=== PATIENT | male | born 1960 | race Caucasian/White ===

== ENCOUNTER 2017-01-04 06:03 | Emergency (ER) | payer MEDICAID, OTHER ==
[~2017-01-04] VITALS: Ht 182.9 cm; Wt 77.0 kg
[~2017-01-04 06:03] MED LIST: GABA800T PO; LISI10TA3 PO; METR-1 PO
[2017-01-04 06:05] VITALS: BP 147/88; PULSE 79; RESP 16; TEMP 98; O2SAT 99
[2017-01-04] MEDS ORDERED: SODIUM CHLOR 0.9% 1000 ML INJ 1,000 ML IV SCH (06:53)
[2017-01-04] MEDS ORDERED: SODIUM CHLORIDE 0.9% FLUSH 5 ML FLUSH IVF PRN (07:00)
[2017-01-04] MEDS ORDERED: ONDANSETRON HCL 4 MG/2 ML VIAL IVP ONE (07:00)
[2017-01-04] MEDS ORDERED: MORPHINE SULFATE 4 MG/ML INJ IV PUSH ONE (07:00)
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
[2017-01-04 07:36] LABS: AUTOMATED NEUTROPHIL # 2.6 TH/MM3 (1.8-7.7); BASOPHIL % 0.5 % (0.0-2.0); EOSINOPHIL # 0.1 TH/MM3 (0-0.4); EOSINOPHIL % 2.1 % (0.0-4.0); HEMATOCRIT 44.5 % (39.0-51.0); LYMPH % 33.8 % (9.0-44.0); LYMPHOCYTE # 1.7 TH/MM3 (1.0-4.8); MEAN CORPUSCULAR HEMOGLOBIN 34.8 PG (27.0-34.0); MEAN CORPUSCULAR HGB CONC 35.5 % (32.0-36.0); MONO % 13.2 % (0.0-8.0); NEUT % 50.4 % (16.0-70.0); PLATELET COUNT 42 TH/MM3 (150-450); RED BLOOD COUNT 4.54 MIL/MM3 (4.50-5.90); RED CELL DISTRIBUTION WIDTH 14.3 % (11.6-17.2); WHITE BLOOD COUNT 5.1 TH/MM3 (4.0-11.0)
[2017-01-04 07:44] LABS: HEMO FLAGS AUTO DIFF
[2017-01-04 07:46] LABS: APTT (PATIENT) 29.8 SEC (24.3-30.1); INTERNATIONAL NORMALIZED RATIO 1.2 RATIO; PROTHROMBIN TIME - PATIENT 13.6 SEC (9.8-11.6)
[2017-01-04 07:52] LABS: BLOOD, URINE NEG (NEG); GLUCOSE,URINE NEG (NEG); KETONE, URINE NEG (NEG); MUCUS URINE FEW /lpf (OCC); NITRITE,URINE NEG (NEG)
[2017-01-04 07:53] LABS: CALCIUM OXALATE CRYSTALS,URINE FEW /hpf; URINE COLOR AMBER (YELLW/STRAW)
[2017-01-04 07:54] LABS: COMMENT (UR) CULT NOT INDICATED; CULTURE IF INDICATED CULT NOT INDICATED
[2017-01-04 08:00] LABS: ALKALINE PHOSPHATASE 193 U/L (45-117); ALT (GPT) 114 U/L (12-78); ANION GAP 7 MEQ/L (5-15); AST (GOT) 166 U/L (15-37); BICARBONATE 27.3 MEQ/L (21.0-32.0); BLOOD UREA NITROGEN 8 MG/DL (7-18); CHLORIDE 102 MEQ/L (98-107); GLOMERULAR FILTRATION RATE 64 ML/MIN (>89); SODIUM (NA) 136 MEQ/L (136-145); TOTAL BILIRUBIN ADULT 2.4 MG/DL (0.2-1.0)
--- NOTE | 2017-01-04 08:49 | PD ---
Data Data Last Documented VS Vital Signs Date Time Temp Pulse Resp B/P Pulse Ox O2 Delivery O2 Flow Rate FiO2 01/04/17 07:55 20 01/04/17 06:05 98.0 79 147/88 99 Room Air Orders Complete Blood Count With Diff (01/04/17 06:53) Comprehensive Metabolic Panel (01/04/17 06:53) Lipase (01/04/17 06:53) Lactic Acid (01/04/17 06:53) Prothrombin Time / Inr (Pt) (01/04/17 06:53) Act Partial Throm Time (Ptt) (01/04/17 06:53) Urinalysis - C+S If Indicated (01/04/17 06:53) Iv Access Insert/Monitor (01/04/17 06:53) Ecg Monitoring (01/04/17 06:53) Oximetry (01/04/17 06:53) Morphine Inj (Morphine Inj) (01/04/17 07:00) Ondansetron Inj (Zofran Inj) (01/04/17 07:00) Sodium Chlor 0.9% 1000 Ml Inj (Ns 1000 M (01/04/17 06:53) Sodium Chloride 0.9% Flush (Ns Flush) (01/04/17 07:00) C-Reactive Protein (Crp) (01/04/17 06:53) Stool Wbc (Leukocytes) (01/04/17 07:10) Enteric Path (Stool) (01/04/17 07:10) C Diff Toxin Pcr (01/04/17 07:10) Ct Abd/Pel W Iv Contrast(Rout) (01/04/17 07:11) Iohexol 350 Inj (Omnipaque 350 Inj) (01/04/17 09:04) Labs Laboratory Tests Test 01/04/17 07:25 White Blood Count 5.1 TH/MM3 Red Blood Count 4.54 MIL/MM3 Hemoglobin 15.8 GM/DL Hematocrit 44.5 % Mean Corpuscular Volume 98.0 FL Mean Corpuscular Hemoglobin 34.8 PG Mean Corpuscular Hemoglobin 35.5 % Concent Red Cell Distribution Width 14.3 % Platelet Count 42 TH/MM3 Mean Platelet Volume 9.0 FL Neutrophils (%) (Auto) 50.4 % Lymphocytes (%) (Auto) 33.8 % Monocytes (%) (Auto) 13.2 % Eosinophils (%) (Auto) 2.1 % Basophils (%) (Auto) 0.5 % Neutrophils # (Auto) 2.6 TH/MM3 Lymphocytes # (Auto) 1.7 TH/MM3 Monocytes # (Auto) 0.7 TH/MM3 Eosinophils # (Auto) 0.1 TH/MM3 Basophils # (Auto) 0.0 TH/MM3 CBC Comment AUTO DIFF Differential Comment AUTO DIFF CONFIRMED Prothrombin Time 13.6 SEC Prothromb Time International 1.2 RATIO Ratio Activated Partial 29.8 SEC Thromboplast Time Urine Color DILIP Urine Turbidity CLEAR Urine pH 6.0 Urine Specific [place] 1.024 Urine Protein TRACE mg/dL Urine Glucose (UA) NEG mg/dL Urine Ketones NEG mg/dL Urine Occult Blood NEG Urine Nitrite NEG Urine Bilirubin SMALL Urine Urobilinogen 4.0 MG/DL Urine Leukocyte Esterase NEG Urine RBC LESS THAN 1 /hpf Urine WBC LESS THAN 1 /hpf Urine Calcium Oxalate Crystals FEW /hpf Urine Mucus FEW /lpf Microscopic Urinalysis Comment CULT NOT INDICATED Sodium Level 136 MEQ/L Potassium Level 4.0 MEQ/L Chloride Level 102 MEQ/L Carbon Dioxide Level 27.3 MEQ/L Anion Gap 7 MEQ/L Blood Urea Nitrogen 8 MG/DL Creatinine 1.18 MG/DL Estimat Glomerular Filtration 64 ML/MIN Rate Random Glucose 100 MG/DL Lactic Acid Level 1.1 mmol/L Calcium Level 8.8 MG/DL Total Bilirubin 2.4 MG/DL Aspartate Amino Transf 166 U/L (AST/SGOT) Alanine Aminotransferase 114 U/L (ALT/SGPT) Alkaline Phosphatase 193 U/L C-Reactive Protein LESS THAN 0.29 MG/DL Total Protein 8.9 GM/DL Albumin 3.4 GM/DL Lipase 389 U/L [facility] Supervised Visit with MOISES: No Narrative Course Patient signed out to me by previous provider. Please see associated no for further details. In short patient is a 56-year-old male with 2 days of abdominal pain, diarrhea. Recent history of C. difficile colitis, admitted for same in September 2016. Well-appearing per previous provider. High suspicion for recurrent C. difficile versus gastroenteritis. Signed out to me pending laboratory workup and CT for hopeful disposition home. CBC, CMP, lipase, lactate, coags, urinalysis, CRP obtained and notable for minimally elevated LFTs with T bili 2.4, AST 166, ALT 114, alkaline phosphatase 193. CT abdomen and pelvis showed no acute abnormalities. Patient's abdominal examination remains benign. He was unable to produce sample for stool testing. We'll treat empirically for C. difficile given his symptoms and have him follow up with outpatient PCP and testing. Diagnosis Primary Impression: Abdominal pain Qualified Code: R10.32 - Left lower quadrant pain Additional Impression: Diarrhea Qualified Code: R19.7 - Diarrhea, unspecified type Referrals: Lowell Drummond MD 1 day Additional Instruction: Antibiotics as prescribed. Call PCP to follow-up on ER visit. Return for the warning signs discussed. Med/Other Pt SpecificInfo: Prescription(s) given Scripts Metronidazole (Flagyl)500 Mg Trf160 Mg PO TID 10 Days Ref 0 Prov:Nelida Mistry MD 01/04/17 Disposition: 01 DISCHARGE HOME Condition: Stable Nelida Mistry MD Jan 04, 2017 08:49
[2017-01-04] MEDS ORDERED: IOHEXOL 350 MG/ML 10 ML VIAL (for RAD DIAG) IV ONE (09:04)
[2017-01-04 09:13] LABS: SCAN/DIFF AUTO DIFF CONFIRMED
--- NOTE | 2017-01-04 09:18 | RADRPT ---
EXAM DATE/TIME: 01/04/2017 08:44 [place] COMPARISON: CT ABDOMEN & PELVIS W CONTRAST, October 03, 2016, 9:05. INDICATIONS : Abdomen pain and diarrhea for 2 days IV CONTRAST: 80 cc Omnipaque 350 (iohexol) IV ORAL CONTRAST: No oral contrast ingested. RADIATION DOSE: 9.96 CTDIvol (mGy) MEDICAL HISTORY : Cardiovascular disease. Diabetes mellitus type 2. Hypertension. Cirrhosis, and hepatitis C. SURGICAL HISTORY : None. ENCOUNTER: Initial ACUITY: 2 days PAIN SCALE: 6/10 LOCATION: diffuse abdomen TECHNIQUE: Volumetric scanning of the abdomen and pelvis was performed. Using automated exposure control and ad justment of the mA and/or kV according to patient size, radiation dose was kept as low as reasonably achievable to obtain optimal diagnostic quality images. FINDINGS: LOWER LUNGS: The visualized lower lungs are clear. LIVER: The liver remains cirrhotic in appearance with lobular contour and mild nodularity. The liver is diff usely decreased in attenuation value with a stable cyst again noted in the left lobe. Inhomogeneity r emains in the diaphragm which is not significant change. There are no new masses or ductal dilatation . The gallbladder remains unremarkable. The portal venous system remains patent. Gastroesophageal vini ices are again noted. SPLEEN: The spleen remains enlarged with no focal mass or ascites. PANCREAS: Within normal limits. KIDNEYS: Normal in size and shape. There is no mass, stone or hydronephrosis. ADRENAL GLANDS: Within normal limits. VASCULAR: There is no aortic aneurysm. BOWEL/MESENTERY: No oral contrast was given limiting the sensitivity. There are scattered diverticuli in the colon wit h no distinct focal wall thickening or inflammatory change. A normal appendix is again visualized. Th ere are multiple loops of nondilated air-containing small bowel with no free air or fluid. ABDOMINAL WALL: Within normal limits. RETROPERITONEUM: There is no lymphadenopathy. BLADDER: No wall thickening or mass. REPRODUCTIVE: Within normal limits. INGUINAL: There is no lymphadenopathy or hernia. MUSCULOSKELETAL: Within normal limits for patient age. CONCLUSION: 1. Nonspecific, nonobstructive bowel gas pattern with multiple loops of nondilated air-containing sma ll bowel. 2. Scattered diverticuli with no definite focal inflammatory change. No oral contrast was given limit ing the sensitivity of the exam. 3. Cirrhotic liver again noted with esophageal varices. 4. Mild splenomegaly. 5. Simple cyst in the left lobe of the liver. Allan May MD on January 04, 2017 at 9:10 Board Certified Radiologist. This report was verified electronically.
[2017-01-04] MEDS ORDERED: METR-1 PO (09:53)
[2017-01-04 10:16] VITALS: BP 132/82; PULSE 72; RESP 16; O2SAT 99
== END 2017-01-04 10:25 | disposition home or self-care (01) ==
LOC: NEPE 06:03
DX: R10.32 Left lower quadrant pain (principal); R19.7 Diarrhea, unspecified; I10 Essential (primary) hypertension; A04.7 Enterocolitis due to Clostridium difficile; F17.210 Nicotine dependence, cigarettes, uncomplicated
CPT/HCPCS: 74177; 80053; 81001; 83605; 83690; 85025; 85610; 85730; 86140; 96361; 96374; 96375; 99284; J2270; J2405; J7030; Q9967

== ENCOUNTER 2017-03-07 21:45 | Emergency (ER) | payer OTHER ==
[~2017-03-07] VITALS: Ht 165.1 cm; Wt 70.0 kg
[2017-03-07] MEDS ORDERED: SODIUM CHLOR 0.9% 1000 ML INJ 1,000 ML IV SCH (21:56)
[2017-03-07 21:57] LABS: MEAN CORPUSCULAR HGB CONC 36.1 % (32.0-36.0)
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
[2017-03-07] MEDS ORDERED: MORPHINE SULFATE 4 MG/ML INJ IV PUSH ONE (22:00)
[2017-03-07] MEDS ORDERED: ONDANSETRON HCL 4 MG/2 ML VIAL IVP ONE (22:00)
[2017-03-07] MEDS ORDERED: SODIUM CHLORIDE 0.9% FLUSH 10 ML FLUSH IV FLUSH PRN (22:00)
[2017-03-07 22:02] VITALS: BP 160/83; PULSE 72; RESP 18; TEMP 98.9; O2SAT 98
[2017-03-07 22:04] VITALS: RESP 18; O2SAT 98
[2017-03-07] MEDS ORDERED: AMLO10TA2 PO (22:06)
[2017-03-07 22:52] LABS: AUTOMATED NEUTROPHIL # 3.3 TH/MM3 (1.8-7.7); BASOPHIL % 0.4 % (0.0-2.0); EOSINOPHIL % 0.7 % (0.0-4.0); HEMATOCRIT 40.4 % (39.0-51.0); LYMPH % 33.7 % (9.0-44.0); LYMPHOCYTE # 2.1 TH/MM3 (1.0-4.8); MEAN CELL VOLUME 97.5 FL (80.0-100.0); MEAN CORPUSCULAR HEMOGLOBIN 35.2 PG (27.0-34.0); MONO % 11.1 % (0.0-8.0); NEUT % 54.1 % (16.0-70.0); PLATELET COUNT 63 TH/MM3 (150-450); RED BLOOD COUNT 4.14 MIL/MM3 (4.50-5.90); RED CELL DISTRIBUTION WIDTH 14.2 % (11.6-17.2); WHITE BLOOD COUNT 6.1 TH/MM3 (4.0-11.0)
[2017-03-07 22:59] LABS: HEMO FLAGS AUTO DIFF
[2017-03-07 23:39] LABS: PLATELET ESTIMATE SMEAR LOW (NORMAL); PLATELET MORPHOLOGY NORMAL (NORMAL); SCAN/DIFF AUTO DIFF CONFIRMED
[2017-03-08 00:21] LABS: ALKALINE PHOSPHATASE 154 U/L (45-117); TOTAL BILIRUBIN ADULT 2.6 MG/DL (0.2-1.0)
[2017-03-08 00:37] LABS: ALT (GPT) 122 U/L (12-78); ANION GAP 10 MEQ/L (5-15); AST (GOT) 194 U/L (15-37); BICARBONATE 26.1 MEQ/L (21.0-32.0); BLOOD UREA NITROGEN 7 MG/DL (7-18); CHLORIDE 102 MEQ/L (98-107); GLOMERULAR FILTRATION RATE 65 ML/MIN (>89); POTASSIUM 4.2 MEQ/L (3.5-5.1); SODIUM (NA) 138 MEQ/L (136-145)
[2017-03-08 01:00] LABS: BLOOD, URINE NEG (NEG); GLUCOSE,URINE NEG (NEG); KETONE, URINE NEG (NEG); NITRITE,URINE NEG (NEG); PH, URINE 7.5 (5.0-8.5); URINE COLOR YELLOW (YELLW/STRAW)
[2017-03-08 01:01] LABS: COMMENT (UR) CULT NOT INDICATED; CULTURE IF INDICATED CULT NOT INDICATED
[2017-03-08] MEDS ORDERED: IOHEXOL 350 MG/ML 10 ML VIAL (for RAD DIAG) IV ONE (01:59)
--- NOTE | 2017-03-08 02:15 | RADRPT ---
EXAM DATE/TIME: 03/08/2017 01:56 [facility] COMPARISON: No previous studies available for comparison. INDICATIONS : Bilateral lower quadrant pain with nausea, vomiting and diarrhea. IV CONTRAST: 95 cc Omnipaque 350 (iohexol) IV ORAL CONTRAST: No oral contrast ingested. RADIATION DOSE: 5.58 CTDIvol (mGy) MEDICAL HISTORY : Cardiovascular disease. Ulcers. Gastroesophageal reflux disease.Hepatitis C. SURGICAL HISTORY : None. ENCOUNTER: Initial ACUITY: 2 days PAIN SCALE: 6/10 LOCATION: Bilateral lower quadrant TECHNIQUE: Volumetric scanning of the abdomen and pelvis was performed. Using automated exposure control and ad justment of the mA and/or kV according to patient size, radiation dose was kept as low as reasonably achievable to obtain optimal diagnostic quality images. FINDINGS: LOWER LUNGS: The visualized lower lungs are clear. LIVER: Nodular Heterogeneous density without lesion other than numerous cysts. There is no dilation of the biliary tree. Some fluid adjacent to the gallbladder fossa without gallbladder wall thickening. SPLEEN: Prominent size without lesion. PANCREAS: Within normal limits. KIDNEYS: Normal in size and shape. There is no mass, stone or hydronephrosis. ADRENAL GLANDS: Within normal limits. VASCULAR: There is no aortic aneurysm. BOWEL/MESENTERY: The stomach, small bowel, and colon demonstrate no acute abnormality. There is no free intraperitone al air or fluid. ABDOMINAL WALL: Within normal limits. RETROPERITONEUM: There is no lymphadenopathy. BLADDER: No wall thickening or mass. REPRODUCTIVE: Within normal limits. INGUINAL: There is no lymphadenopathy or hernia. MUSCULOSKELETAL: Within normal limits for patient age. CONCLUSION: Mildly cirrhotic liver with a few small cysts. Splenomegaly. No etiology for abdominal pain is identi fied. Abelardo Lindo MD on March 08, 2017 at 2:11 Board Certified Radiologist. This report was verified electronically.
[2017-03-08] MEDS ORDERED: METR-1 PO (02:23)
[2017-03-08] MEDS ORDERED: ZOFR4TAB PO (02:23)
[2017-03-08] MEDS ORDERED: metroNIDAZOLE 500 MG INJ 100 ML IV ONE (02:30)
== END 2017-03-08 03:39 | disposition home or self-care (01) ==
LOC: NEPD 21:45
DX: R10.30 Lower abdominal pain, unspecified (principal); I10 Essential (primary) hypertension; Z72.0 Tobacco use
CPT/HCPCS: 74177; 80053; 81001; 83605; 83690; 85025; 96361; 96365; 96375; 99284; J2270; J2405; J7030; Q9967

== ENCOUNTER 2017-03-29 17:52 | Emergency (ER) | payer OTHER ==
[2017-03-29] VITALS (8 sets, daily range): BP systolic 122–160; BP diastolic 72–88; PULSE 73–90; RESP 16–18; TEMP 98.6; O2SAT 98–100
[~2017-03-29] VITALS: Ht 180.3 cm; Wt 70.0 kg
[~2017-03-29 17:52] MED LIST changes: +AMLO10TA2 PO; -LISI10TA3 PO; +ZOFR4TAB PO
[2017-03-29] MEDS ORDERED: KETOROLAC TROMETHAMINE 30 MG/ML (IVP) VIAL IV PUSH ONE (18:15)
[2017-03-29] MEDS ORDERED: PANTOPRAZOLE SODIUM 40 MG VIAL IV PUSH ONE (18:15)
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
[2017-03-29 19:00] LABS: AUTOMATED NEUTROPHIL # 3.8 TH/MM3 (1.8-7.7); BASOPHIL # 0.2 TH/MM3 (0-0.2); BASOPHIL % 3.2 % (0.0-2.0); EOSINOPHIL # 0.1 TH/MM3 (0-0.4); EOSINOPHIL % 1.4 % (0.0-4.0); HEMATOCRIT 41.1 % (39.0-51.0); LYMPH % 22.5 % (9.0-44.0); LYMPHOCYTE # 1.4 TH/MM3 (1.0-4.8); MEAN CELL VOLUME 98.1 FL (80.0-100.0); MEAN CORPUSCULAR HEMOGLOBIN 33.4 PG (27.0-34.0); MONO % 9.7 % (0.0-8.0); NEUT % 63.2 % (16.0-70.0); PLATELET COUNT 36 TH/MM3 (150-450); RED BLOOD COUNT 4.19 MIL/MM3 (4.50-5.90); RED CELL DISTRIBUTION WIDTH 13.3 % (11.6-17.2); WHITE BLOOD COUNT 6.1 TH/MM3 (4.0-11.0)
--- NOTE | 2017-03-29 19:07 | PD ---
Physical Exam Date Seen by Provider: March 29, 2017 Time Seen by Provider: 19:06 Narrative Accepted in transfer of care from Dr. Caputo GENERAL: Well-developed well-nourished male in no acute distress no respiratory distress SKIN: Warm and dry. CARDIOVASCULAR: Regular rate and rhythm without murmurs, gallops, or rubs. RESPIRATORY: Breath sounds equal bilaterally. No accessory muscle use. GASTROINTESTINAL: Abdomen soft, diffusely tender to palpation left sided greater than right sided without guarding or rebound, nondistended. Data Data Last Documented VS Vital Signs Date Time Temp Pulse Resp B/P Pulse Ox O2 Delivery O2 Flow Rate FiO2 03/29/17 21:12 82 18 160/88 100 Room Air 03/29/17 17:54 98.6 Orders Complete Blood Count With Diff (03/29/17 18:08) Comprehensive Metabolic Panel (03/29/17 18:08) Lipase (03/29/17 18:08) Iv Access Insert/Monitor (03/29/17 18:08) Pantoprazole Inj (Protonix Inj) (03/29/17 18:15) Ketorolac Inj (Toradol Inj) (03/29/17 18:15) Sodium Chlor 0.9% 1000 Ml Inj (Ns 1000 M (03/29/17 20:30) Ondansetron Inj (Zofran Inj) (03/29/17 20:30) Morphine Inj (Morphine Inj) (03/29/17 20:30) Abdomen, Flat & Upright (03/29/17 ) Metronidazole 500 Mg Inj (Flagyl 500 Mg (03/29/17 22:00) Levofloxacin (Levaquin) (03/29/17 22:00) Labs Laboratory Tests Test 03/29/17 18:50 White Blood Count 6.1 TH/MM3 Red Blood Count 4.19 MIL/MM3 Hemoglobin 14.0 GM/DL Hematocrit 41.1 % Mean Corpuscular Volume 98.1 FL Mean Corpuscular Hemoglobin 33.4 PG Mean Corpuscular Hemoglobin 34.0 % Concent Red Cell Distribution Width 13.3 % Platelet Count 36 TH/MM3 Mean Platelet Volume 8.9 FL Neutrophils (%) (Auto) 63.2 % Lymphocytes (%) (Auto) 22.5 % Monocytes (%) (Auto) 9.7 % Eosinophils (%) (Auto) 1.4 % Basophils (%) (Auto) 3.2 % Neutrophils # (Auto) 3.8 TH/MM3 Lymphocytes # (Auto) 1.4 TH/MM3 Monocytes # (Auto) 0.6 TH/MM3 Eosinophils # (Auto) 0.1 TH/MM3 Basophils # (Auto) 0.2 TH/MM3 CBC Comment AUTO DIFF Differential Comment AUTO DIFF CONFIRMED Platelet Estimate LOW Sodium Level 141 MEQ/L Potassium Level 3.6 MEQ/L Chloride Level 103 MEQ/L Carbon Dioxide Level 27.9 MEQ/L Anion Gap 10 MEQ/L Blood Urea Nitrogen 3 MG/DL Creatinine 0.90 MG/DL Estimat Glomerular Filtration 88 ML/MIN Rate Random Glucose 94 MG/DL Calcium Level 8.6 MG/DL Total Bilirubin 1.9 MG/DL Aspartate Amino Transf 182 U/L (AST/SGOT) Alanine Aminotransferase 125 U/L (ALT/SGPT) Alkaline Phosphatase 172 U/L Total Protein 7.7 GM/DL Albumin 3.0 GM/DL Lipase 221 U/L [facility] Medical Record Reviewed: Yes Supervised Visit with MOISES: No Interpretation(s) Last Impressions Abdomen X-Ray 03/29/17 0000 Signed Impressions: Service Date/Time: Wednesday, March 29, 2017 20:53 - CONCLUSION: Nonspecific, benign abdomen appearance Diaz Howell MD CBC & BMP Diagram 03/29/17 18:50 Differential Diagnosis Accepted in transfer of care from Dr. Caputo please refer to her dictation Narrative Course Accepted in transfer of care from Dr. Caputo for follow up of pending labs response to medications and disposition Patient requested pain medication given morphine sulfate 2 mg IV along with Zofran 4 mg IV Patient feels some improved is aware that abdominal flat and upright film reveals no evidence for dilated loops of bowel, obstruction, or free subdiaphragmatic air. Patient states symptoms are the same as they've been since September does not want to proceed with a CT abdomen and pelvis has been informed by his significant other that an appointment has been made to be seen by media marketing coordinator and states he can follow-up with his primary care provider this week. Patient is out of antibiotic. Patient is concerned about ongoing diarrhea although no diarrhea during this ER stay and has been observed for approximately 4 hours since triage. Patient denies any blood or mucoid stool. Review of previous CTs does not identify any diverticulosis changes. Patient is afebrile and no leukocytosis have low suspicion for diverticulitis or abscess. Patient states when he is on oral antibiotic his symptoms seemed to dissipate and only recur when he is off of antibiotic. We'll therefore administer a dose of IV Flagyl and discharge the patient with Flagyl and encouraged him to follow up with his primary care provider and keep GI appointment. Patient is to return for any worsening symptoms or for fever and he is aware that this may require admission if he develops worsening symptoms or fever. Patient is encouraged to discontinue use of alcohol completely in view of his history of cirrhosis, hepatitis C and thrombocytopenia. Diagnosis Primary Impression: Diarrhea Qualified Code: R19.7 - Diarrhea, unspecified type Additional Impressions: Hepatitis Thrombocytopenia Referrals: [employer] call for appointment Primary Care Physician 2 days Patient Instructions: General Instructions Additional Instruction: Complete course of antibiotic as prescribed Recommend clear liquid diet for next 12-24 hours advance as tolerated to bland/ Magdaleno diet then regular diet Follow-up with your primary care physician call office in a.m. to schedule follow-up appointment this week Follow-up with media marketing coordinator as planned Return to the emergency department for increased pain fever vomiting or any concerns or change in condition Do not drink any alcoholic beverages Med/Other Pt SpecificInfo: Prescription(s) given Scripts Metronidazole (Flagyl)500 Mg [id number] Mg PO TID 10 Days Ref 0 Prov:Pavithra Hernandez MD 03/29/17 Disposition: 01 DISCHARGE HOME Condition: Stable Pavithra Hernandez MD March 29, 2017 19:07
[2017-03-29 19:11] LABS: HEMO FLAGS AUTO DIFF
[2017-03-29 19:18] LABS: CHLORIDE 103 MEQ/L (98-107); POTASSIUM 3.6 MEQ/L (3.5-5.1); SODIUM (NA) 141 MEQ/L (136-145)
[2017-03-29 19:22] LABS: ANION GAP 10 MEQ/L (5-15); BICARBONATE 27.9 MEQ/L (21.0-32.0); BLOOD UREA NITROGEN 3 MG/DL (7-18)
[2017-03-29 19:25] LABS: ALT (GPT) 125 U/L (12-78); AST (GOT) 182 U/L (15-37); GLOMERULAR FILTRATION RATE 88 ML/MIN (>89)
[2017-03-29 19:27] LABS: TOTAL BILIRUBIN ADULT 1.9 MG/DL (0.2-1.0)
[2017-03-29 19:28] LABS: ALKALINE PHOSPHATASE 172 U/L (45-117)
[2017-03-29 19:42] LABS: PLATELET ESTIMATE SMEAR LOW (NORMAL); SCAN/DIFF AUTO DIFF CONFIRMED
[2017-03-29] MEDS ORDERED: SODIUM CHLOR 0.9% 1000 ML INJ 1,000 ML IV ONE (20:30)
[2017-03-29] MEDS ORDERED: MORPHINE SULFATE 4 MG/ML INJ IV PUSH ONE ×2 (20:30→23:15)
[2017-03-29] MEDS ORDERED: ONDANSETRON HCL 4 MG/2 ML VIAL IV PUSH ONE (20:30)
--- NOTE | 2017-03-29 21:28 | RADHPO ---
EXAM DATE/TIME: 03/29/2017 20:53 [facility] COMPARISON: No previous studies available for comparison. INDICATIONS : Abdominal pain. MEDICAL HISTORY : Crohn's disease. SURGICAL HISTORY : None. ENCOUNTER: Initial ACUITY: 3 days PAIN SCORE: 6/10 LOCATION: Abdomen FINDINGS: Supine and upright views of the abdomen were performed. The abdominal bowel gas pattern is normal. No air fluid levels are seen. No abnormal masses, calcifications, or organomegaly is seen. The visu alized lower lungs are clear. No evidence of free intraperitoneal gas. The osseous structures are u nremarkable. CONCLUSION: Nonspecific, benign abdomen appearance Diaz Howell MD on March 29, 2017 at 21:26 Board Certified Radiologist. This report was verified electronically.
[2017-03-29] MEDS ORDERED: LEVOFLOXACIN 500 MG TAB PO ONE (22:00)
[2017-03-29] MEDS ORDERED: metroNIDAZOLE 500 MG INJ 100 ML IV ONE (22:00)
[2017-03-29] MEDS ORDERED: METR-1 PO ×2 (22:02→22:03)
== END 2017-03-29 23:43 | disposition home or self-care (01) ==
LOC: PHED 17:52
DX: R19.7 Diarrhea, unspecified (principal); D69.6 Thrombocytopenia, unspecified; B19.20 Unspecified viral hepatitis C without hepatic coma
CPT/HCPCS: 74020; 80053; 83690; 85025; 96361; 96365; 96375; 96376; 99284; C9113; J1885; J2270; J2405; J7030

== ENCOUNTER 2017-11-20 17:09 | Inpatient (IN) | payer OTHER ==
[~2017-11-20] VITALS: Ht 182.9 cm; Wt 76.0 kg
[~2017-11-20 17:09] MED LIST changes: -AMLO10TA2 PO; -ZOFR4TAB PO
[2017-11-20 17:14] VITALS: BP 139/88; PULSE 108; RESP 20; TEMP 98.5; O2SAT 100
[2017-11-20] MEDS ORDERED: PANTOPRAZOLE SODIUM 40 MG VIAL IVP ONE (17:45)
[2017-11-20] MEDS ORDERED: SODIUM CHLORIDE 0.9% FLUSH 10 ML FLUSH IVF PRN (17:45)
[2017-11-20] MEDS ORDERED: SODIUM CHLOR 0.9% 1000 ML INJ 1,000 ML IV SCH (17:45)
--- NOTE | 2017-11-20 18:01 | RADRPT ---
EXAM DATE/TIME: 11/20/2017 17:50 [facility] COMPARISON: CHEST SINGLE AP, October 06, 2014, 5:24. INDICATIONS : Vomiting blood and congestion for one day. MEDICAL HISTORY : Cardiovascular disease. Ulcers. Gastroesophageal reflux disease. Hepatitis C. SURGICAL HISTORY : None. ENCOUNTER: Initial ACUITY: 1 day PAIN SCORE: 0/10 LOCATION: Bilateral chest FINDINGS: The lungs are clear without infiltrate, nodule, or mass. There is no appreciable pleural effusion fo r technique. Heart and mediastinum are unremarkable. CONCLUSION: No acute cardiopulmonary disease. Adonay Garcia MD on November 20, 2017 at 17:59 Board Certified Radiologist. This report was verified electronically.
[2017-11-20] MEDS ORDERED: MORPHINE SULFATE 8 MG/ML INJ ONE (18:14)
[2017-11-20] MEDS ORDERED: MORPHINE SULFATE 4 MG/ML INJ IV PUSH ONE ×3 (18:15)
[2017-11-20 18:31] LABS: AUTOMATED NEUTROPHIL # 3.1 TH/MM3 (1.8-7.7); BASOPHIL % 0.5 % (0.0-2.0); HEMATOCRIT 38.2 % (39.0-51.0); HEMOGLOBIN 13.5 GM/DL (13.0-17.0); LYMPH % 20.3 % (9.0-44.0); MEAN CELL VOLUME 98.4 FL (80.0-100.0); MEAN CORPUSCULAR HEMOGLOBIN 34.9 PG (27.0-34.0); MEAN CORPUSCULAR HGB CONC 35.4 % (32.0-36.0); MEAN PLATELET VOLUME 9.1 FL (7.0-11.0); MONO % 13.8 % (0.0-8.0); MONOCYTE # 0.7 TH/MM3 (0-0.9); NEUT % 64.4 % (16.0-70.0); PLATELET COUNT 54 TH/MM3 (150-450); RED BLOOD COUNT 3.89 MIL/MM3 (4.50-5.90); RED CELL DISTRIBUTION WIDTH 14.3 % (11.6-17.2); WHITE BLOOD COUNT 4.8 TH/MM3 (4.0-11.0)
[2017-11-20 18:32] LABS: INTERNATIONAL NORMALIZED RATIO 1.4 RATIO; PROTHROMBIN TIME - PATIENT 14.1 SEC (9.8-11.6)
[2017-11-20 18:34] LABS: BACTERIA, URINE RARE /hpf; BILIRUBIN, URINE NEG (NEG); BLOOD, URINE NEG (NEG); GLUCOSE,URINE NEG (NEG); KETONE, URINE NEG (NEG); NITRITE,URINE NEG (NEG); URINE COLOR YELLOW (YELLW/STRAW); URINE LEUKOCYTE ESTERASE NEG (NEG)
[2017-11-20 18:50] LABS: ALT (GPT) 106 U/L (12-78)
[2017-11-20 18:51] LABS: ALBUMIN 2.8 GM/DL (3.4-5.0); AST (GOT) 124 U/L (15-37); BICARBONATE 24.8 MEQ/L (21.0-32.0); BLOOD UREA NITROGEN 18 MG/DL (7-18); CALCIUM 7.6 MG/DL (8.5-10.1); CHLORIDE 105 MEQ/L (98-107); CREATININE 0.84 MG/DL (0.60-1.30); GLOMERULAR FILTRATION RATE 95 ML/MIN (>89); GLUCOSE,RANDOM 106 MG/DL (74-106); LIPASE 201 U/L (73-393); SODIUM (NA) 138 MEQ/L (136-145)
[2017-11-20 18:52] LABS: ALKALINE PHOSPHATASE 173 U/L (45-117); TOTAL BILIRUBIN ADULT 1.5 MG/DL (0.2-1.0); TOTAL PROTEIN 7.5 GM/DL (6.4-8.2)
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
[2017-11-20] MEDS ORDERED: SODIUM CHLORIDE 0.9% FLUSH 10 ML FLUSH IV FLUSH PRN (19:15)
[2017-11-20] MEDS ORDERED: HALOPERIDOL LACTATE 5 MG/ML AMP IM PRN (19:15)
[2017-11-20] MEDS ORDERED: LORazepam 2 MG/ML VIAL IV PUSH PRN ×4 (19:15)
[2017-11-20] MEDS ORDERED: SENNOSIDES 8.6 MG TAB PO PRN (19:15)
[2017-11-20] MEDS ORDERED: BISACODYL 10 MG SUPP RECTAL PRN (19:15)
[2017-11-20] MEDS ORDERED: ONDANSETRON HCL 4 MG/2 ML VIAL IVP PRN (19:15)
[2017-11-20] MEDS ORDERED: LORazepam 1 MG TAB PO PRN (19:15)
[2017-11-20] MEDS ORDERED: FLUMAZENIL 0.5 MG/5 ML VIAL IV PUSH PRN (19:15)
[2017-11-20] MEDS ORDERED: LORazepam 2 MG TAB PO PRN (19:15)
[2017-11-20] MEDS ORDERED: ACETAMINOPHEN 325 MG TAB PO PRN (19:15)
[2017-11-20] MEDS ORDERED: MAGNESIUM HYDROXIDE SUSP 30 ML CUP PO PRN (19:15)
[2017-11-20] MEDS ORDERED: LACTULOSE SYRUP 20 GM/30 ML CUP PO PRN (19:15)
[2017-11-20] MEDS: PANTOPRAZOLE INJ 80 MG in SODIUM CHLORIDE 0.9% INJ 100 ML IV SCH (19:22)
[2017-11-20 19:24] VITALS: BP 120/69; PULSE 96; RESP 20; O2SAT 99
[2017-11-20] MEDS: THIAMINE HCL 100 MG TAB PO SCH (19:24)
[2017-11-20 20:37] VITALS: BP 122/78; PULSE 99; RESP 18; TEMP 98.4; O2SAT 97
[2017-11-20] MEDS: DOCUSATE SODIUM 50 MG/SENNA 8.6 MG TAB PO SCH (21:00)
[2017-11-20] MEDS: MORPHINE SULFATE 2 MG/ML INJ IV PUSH PRN (21:18)
[2017-11-20] MEDS: SODIUM CHLORIDE 0.9% FLUSH 10 ML FLUSH IV FLUSH SCH (21:18)
--- NOTE | 2017-11-20 22:41 | EKG ---
Date Performed: 11/20/2017 Time Performed: 17:26:43 PTAGE: 57 years EKG: Sinus rhythm NON-SPECIFIC ST/T WAVE CHANGES Compared to the PREVIOUS TRACING , possible V1/V2 reversal DOCTOR: Jamie Sandoval Interpretating Date/Time 11/20/2017 22:40:02
[2017-11-21] VITALS (9 sets, daily range): BP systolic 93–119; BP diastolic 53–69; PULSE 66–91; RESP 16–20; TEMP 96.8–98.6; O2SAT 98–100
[2017-11-21] MEDS: MORPHINE SULFATE 2 MG/ML INJ IV PUSH PRN ×3 (00:48→21:25)
[2017-11-21] MEDS: PANTOPRAZOLE INJ 80 MG in SODIUM CHLORIDE 0.9% INJ 100 ML IV SCH ×2 (04:47→15:52)
[2017-11-21] MEDS ORDERED: SODIUM CHLOR 0.9% 1000 ML INJ 1,000 ML IV SCH (08:00)
[2017-11-21] MEDS: SODIUM CHLORIDE 0.9% FLUSH 10 ML FLUSH IV FLUSH SCH ×2 (09:00→20:03)
[2017-11-21 09:10] LABS: AUTOMATED NEUTROPHIL # 1.3 TH/MM3 (1.8-7.7); BASOPHIL % 0.3 % (0.0-2.0); EOSINOPHIL # 0.1 TH/MM3 (0-0.4); HEMATOCRIT 31.9 % (39.0-51.0); HEMOGLOBIN 11.2 GM/DL (13.0-17.0); LYMPH % 41.3 % (9.0-44.0); LYMPHOCYTE # 1.3 TH/MM3 (1.0-4.8); MEAN CELL VOLUME 97.7 FL (80.0-100.0); MEAN CORPUSCULAR HEMOGLOBIN 34.3 PG (27.0-34.0); MEAN CORPUSCULAR HGB CONC 35.1 % (32.0-36.0); MEAN PLATELET VOLUME 8.6 FL (7.0-11.0); MONOCYTE # 0.5 TH/MM3 (0-0.9); NEUT % 41.4 % (16.0-70.0); PLATELET COUNT 39 TH/MM3 (150-450); RED BLOOD COUNT 3.26 MIL/MM3 (4.50-5.90); RED CELL DISTRIBUTION WIDTH 14.1 % (11.6-17.2); WHITE BLOOD COUNT 3.2 TH/MM3 (4.0-11.0)
[2017-11-21 09:18] LABS: INTERNATIONAL NORMALIZED RATIO 1.4 RATIO; PROTHROMBIN TIME - PATIENT 14.3 SEC (9.8-11.6)
[2017-11-21 09:32] LABS: ALBUMIN 2.3 GM/DL (3.4-5.0); AST (GOT) 99 U/L (15-37); BICARBONATE 26.2 MEQ/L (21.0-32.0); BLOOD UREA NITROGEN 15 MG/DL (7-18); CALCIUM 7.5 MG/DL (8.5-10.1); CHLORIDE 107 MEQ/L (98-107); CREATININE 1.06 MG/DL (0.60-1.30); GLOMERULAR FILTRATION RATE 72 ML/MIN (>89); GLUCOSE,RANDOM 94 MG/DL (74-106); SODIUM (NA) 140 MEQ/L (136-145)
[2017-11-21] MEDS: DOCUSATE SODIUM 50 MG/SENNA 8.6 MG TAB PO SCH ×2 (09:35→20:03)
[2017-11-21] MEDS: THIAMINE HCL 100 MG TAB PO SCH (09:35)
[2017-11-21] MEDS: MULTIVITAMINS/MINERALS THERAPEUTIC TAB PO SCH (09:35)
[2017-11-21] MEDS: FOLIC ACID 1 MG TAB PO SCH (09:35)
[2017-11-21 09:37] LABS: ALKALINE PHOSPHATASE 112 U/L (45-117); ALT (GPT) 84 U/L (12-78); TOTAL BILIRUBIN ADULT 1.5 MG/DL (0.2-1.0); TOTAL PROTEIN 6.2 GM/DL (6.4-8.2)
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
[2017-11-21] MEDS ORDERED: PEG (High)/E-LYTE SOLN 4000 ML BTL PO ONE (10:00)
[2017-11-21] MEDS ORDERED: GABAPENTIN 400 MG CAP PO ONE (10:15)
--- NOTE | 2017-11-21 10:20 | HHI.PR ---
Subjective Remarks Patient planes of left upper quadrant pain and tenderness. He is admitted for GI bleed and EGD/colonoscopy is planned for . Peripheral neuropathy is his complaint today, no other complaints. Objective Vital Signs Date Time Temp Pulse Resp B/P (MAP) Pulse Ox O2 Delivery O2 Flow Rate FiO2 11/21/17 08:18 98.2 77 18 109/64 (79) 98 11/21/17 04:31 95/54 (68) 11/21/17 03:18 98.6 84 18 112/62 (79) 98 11/21/17 01:30 18 11/21/17 00:12 98.1 91 18 119/63 (81) 99 11/20/17 20:37 98.4 99 18 122/78 (93) 97 11/20/17 19:47 11/20/17 19:24 96 20 120/69 (86) 99 Room Air 11/20/17 19:05 17 11/20/17 17:14 98.5 108 20 139/88 (105) 100 Result Diagram: 11/21/1785411/21/17 0855 Objective Remarks GENERAL: NAD, A&Ox3 HEAD: Normocephalic. NECK: Supple, trachea midline. No lymphadenopathy. EYES: No scleral icterus. No injection or drainage. CARDIOVASCULAR: Regular rate and rhythm without murmurs, gallops, or rubs. RESPIRATORY: Breath sounds equal bilaterally. No accessory muscle use. GASTROINTESTINAL: Abdomen soft, left upper quadrant tenderness. No distention. MUSCULOSKELETAL: No cyanosis, or edema. SKIN: Warm and dry. NEURO: No focal neurological deficitis. A/P Problem List: (1) GI bleed ICD Code: K92.2 - Gastrointestinal hemorrhage, unspecified (2) Abdominal pain ICD Code: R10.9 - Unspecified abdominal pain Status: Acute (3) Thrombocytopenia ICD Code: D69.6 - Thrombocytopenia Status: Acute Assessment and Plan 57-year-old male admitted secondary to GI bleed with left upper quadrant pain GI bleed Follow hemoglobin Plan for EGD/colonoscopy on 11/23/17 GI following Left upper quadrant pain Evaluate splenic ultrasound Hepatitis C with coagulopathy Chronic Standard precautions May be contributory to bleed given INR of 1.4. Alcohol abuse Continue CIWA protocol Continue thiamine Continue folic acid Continue multivitamin Monitor for DTs Nicotine dependence Patient has been counseled to quit NicoDerm patient agrees DVT prophylaxis SCDs given active bleed Dhaval Shaver MD Nov 21, 2017 10:20
[2017-11-21 10:41] LABS: STOMATOCYTES 1+ (NORMAL)
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
[2017-11-21] MEDS: PIPERACIL-TAZO 3.375 GM PREMIX 50 ML IV SCH (15:52)
[2017-11-21] MEDS: GABAPENTIN 400 MG CAP PO SCH (20:02)
[2017-11-21] MEDS ORDERED: NICOTINE 21 MG/24 HR PATCH T-DERMAL PRN (20:45)
[2017-11-21] MEDS ORDERED: REMOVE OLD NICODERM (NICOTINE) PATCH T-DERMAL PRN (21:15)
[2017-11-22] VITALS: BP 123/71; PULSE 77; RESP 20; TEMP 97.7; O2SAT 100
[2017-11-22] MEDS: MORPHINE SULFATE 2 MG/ML INJ IV PUSH PRN ×6 (00:45→22:15)
[2017-11-22] MEDS: PIPERACIL-TAZO 3.375 GM PREMIX 50 ML IV SCH ×2 (00:46→07:57)
[2017-11-22] MEDS: PANTOPRAZOLE INJ 80 MG in SODIUM CHLORIDE 0.9% INJ 100 ML IV SCH ×3 (00:46→19:25)
--- NOTE | 2017-11-22 07:26 | HHI.PR ---
Subjective Remarks Patient has been seen and examined this morning. His vitals are stable and the patient is afebrile. Reports left abdomen hurts, has hurt since Sat at noon. Last BM he states was on Sat feels bloated and constipated. He itches wants to know if he can have benadryl, wants pain meds increased, hasnt been able to sleep because of the pain. No emesis. Objective Vital Signs Date Time Temp Pulse Resp B/P (MAP) Pulse Ox O2 Delivery O2 Flow Rate FiO2 11/22/17 00:00 97.7 77 20 123/71 (88) 100 11/21/17 20:00 97.0 76 20 105/63 (77) 100 11/21/17 18:00 96.8 73 18 113/69 (84) 100 11/21/17 16:17 98.2 67 18 93/62 (72) 99 11/21/17 12:53 108/66 (80) 11/21/17 12:13 98.2 66 16 99/59 (72) 99 11/21/17 08:18 98.2 77 18 109/64 (79) 98 I/O 11/21/17 11/21/17 11/21/17 11/22/17 11/22/17 11/22/17 07:00 15:00 23:00 07:00 15:00 23:00 Intake Total 630 ml Output Total 450 ml Balance 180 ml Intake Oral 480 ml IV Total 150 ml Output Urine Total 450 ml # Voids 4 Result Diagram: 11/21/17 0855 11/21/17 0855 Imaging Last Impressions Spleen Ultrasound 11/21/17 0000 Signed Impressions: Service Date/Time: Tuesday, November 21, 2017 11:48 - CONCLUSION: Splenomegaly. There are changes of cirrhosis and presumed portal hypertension on a prior CT examination from 03/08/17. Diaz Chung MD Chest X-Ray 11/20/17 7000 Signed Impressions: Service Date/Time: Monday, November 20, 2017 17:50 - CONCLUSION: No acute cardiopulmonary disease. Adonay Garcia MD Objective Remarks GENERAL: sitting up in bed, nad SKIN: Warm and dry. HEAD: Normocephalic. EYES: No scleral icterus. No injection or drainage. NECK: Supple, trachea midline. No JVD or lymphadenopathy. CARDIOVASCULAR: Regular rate and rhythm without murmurs, gallops, or rubs. RESPIRATORY: Breath sounds equal bilaterally. No accessory muscle use. GASTROINTESTINAL: Abdomen soft, tender to the left quadrant. MUSCULOSKELETAL: No cyanosis, or edema. No calf tenderness. A/P Problem List: (1) Tobacco use disorder ICD Code: Z72.0 - Tobacco use disorder Status: Acute (2) GI bleed ICD Code: K92.2 - Gastrointestinal hemorrhage, unspecified Status: Acute (3) Hepatitis C ICD Code: B19.20 - Unspecified viral hepatitis C without hepatic coma (4) Thrombocytopenia ICD Code: D69.6 - Thrombocytopenia Status: Acute Assessment and Plan This is a 57 yo male with a medical history significant for hep C, alcohol abuse , tobacco abuse presented to the ER with complaints of hematemesis, abdominal pain, and melena. GI bleed and abdominal pain - Hemoccult positive - Baseline appears to be 14, 13.5 on admission, 11.2 this morning - GI consulted: EGD colonoscopy on 11/23 sepsis thousand 18 - Splenic ultrasound: Splenomegaly. There are changes of cirrhosis and presumed portal hypertension on prior CT. - Protonix drip Hepatitis C - Elevated LFTs from baseline, elevated INR 1.4. - We'll monitor closely - GI is following Thrombocytopenia - Chronic - Transfuse as necessary Tobacco abuse - Counsoled Alcohol Abuse - CIWA - multivitamin, thiamine, folate Patient was on zosyn. Unclear why. No leukocytosis, fever, CXR normal so will stop. Monitory for any signs of infection. DVT prophylaxis: Chemical prophylaxis contraindicated in lieu of bleed, bilateral SCDs Nothing by mouth at midnight Discharge Planning DC pending further workup, EGD is planned for Wednesday. Afshan Jimenez MD Nov 22, 2017 07:26
[2017-11-22] MEDS: GABAPENTIN 400 MG CAP PO SCH ×3 (07:56→16:51)
[2017-11-22] MEDS: MULTIVITAMINS/MINERALS THERAPEUTIC TAB PO SCH (07:56)
[2017-11-22] MEDS: FOLIC ACID 1 MG TAB PO SCH (07:57)
[2017-11-22] MEDS: DOCUSATE SODIUM 50 MG/SENNA 8.6 MG TAB PO SCH ×2 (07:57→21:00)
[2017-11-22] MEDS: THIAMINE HCL 100 MG TAB PO SCH (07:57)
[2017-11-22] MEDS: SODIUM CHLORIDE 0.9% FLUSH 10 ML FLUSH IV FLUSH SCH ×2 (07:57→22:12)
[2017-11-22 08:00] VITALS: BP 125/74; PULSE 74; RESP 16; TEMP 97.3; O2SAT 98
[2017-11-22] MEDS ORDERED: MORPHINE SULFATE 2 MG/ML INJ IV PUSH SCH (08:30)
[2017-11-22 09:11] LABS: AUTOMATED NEUTROPHIL # 1.7 TH/MM3 (1.8-7.7); BASOPHIL % 0.3 % (0.0-2.0); EOSINOPHIL # 0.1 TH/MM3 (0-0.4); EOSINOPHIL % 2.5 % (0.0-4.0); HEMATOCRIT 38.8 % (39.0-51.0); HEMOGLOBIN 13.3 GM/DL (13.0-17.0); LYMPH % 43.5 % (9.0-44.0); LYMPHOCYTE # 1.8 TH/MM3 (1.0-4.8); MEAN CELL VOLUME 99.5 FL (80.0-100.0); MEAN CORPUSCULAR HEMOGLOBIN 34.1 PG (27.0-34.0); MEAN CORPUSCULAR HGB CONC 34.3 % (32.0-36.0); MONO % 11.9 % (0.0-8.0); MONOCYTE # 0.5 TH/MM3 (0-0.9); NEUT % 41.8 % (16.0-70.0); PLATELET COUNT 46 TH/MM3 (150-450); RED CELL DISTRIBUTION WIDTH 14.2 % (11.6-17.2); WHITE BLOOD COUNT 4.1 TH/MM3 (4.0-11.0)
[2017-11-22 09:33] LABS: ALBUMIN 2.9 GM/DL (3.4-5.0); ALKALINE PHOSPHATASE 124 U/L (45-117); ALT (GPT) 111 U/L (12-78); AST (GOT) 141 U/L (15-37); BICARBONATE 24.5 MEQ/L (21.0-32.0); BLOOD UREA NITROGEN 10 MG/DL (7-18); CALCIUM 7.8 MG/DL (8.5-10.1); CHLORIDE 105 MEQ/L (98-107); CREATININE 1.31 MG/DL (0.60-1.30); GLOMERULAR FILTRATION RATE 57 ML/MIN (>89); GLUCOSE,RANDOM 103 MG/DL (74-106); SODIUM (NA) 140 MEQ/L (136-145); TOTAL BILIRUBIN ADULT 1.4 MG/DL (0.2-1.0); TOTAL PROTEIN 7.6 GM/DL (6.4-8.2)
[2017-11-22] MEDS ORDERED: diphenhydrAMINE HCL 25 MG CAP PO PRN (10:45)
[2017-11-22 12:00] VITALS: BP 142/71; PULSE 91; RESP 17; TEMP 97; O2SAT 98
[2017-11-22 16:00] VITALS: BP 125/71; PULSE 76; RESP 21; TEMP 97.4; O2SAT 100
[2017-11-22] MEDS ORDERED: PEG (High)/E-LYTE SOLN 4000 ML BTL PO ONE (16:00)
[2017-11-22 20:00] VITALS: BP 120/76; PULSE 83; RESP 16; TEMP 97.2; O2SAT 100
[2017-11-22] MEDS ORDERED: SODIUM CHLORID 0.9% 500 ML IV PRN (20:00)
[2017-11-22] MEDS ORDERED: POVIDONE IODINE 5% (ANTISEPSIS KIT) 4 APPLICATIONS EACH NARE PRN (20:00)
[2017-11-22] MEDS ORDERED: CHLORHEXIDINE GLUCONATE 2 % 1 PACK (2 CLOTHS) TOPICAL PRN (20:00)
[2017-11-22] MEDS ORDERED: LACTATED RINGER'S 1000 ML IV PRN (20:00)
[2017-11-23] VITALS: BP 131/83; PULSE 82; RESP 16; TEMP 98.1; O2SAT 100
[2017-11-23] MEDS: MORPHINE SULFATE 2 MG/ML INJ IV PUSH PRN ×2 (03:46→11:03)
[2017-11-23 07:21] LABS: AUTOMATED NEUTROPHIL # 1.9 TH/MM3 (1.8-7.7); BASOPHIL % 0.5 % (0.0-2.0); EOSINOPHIL # 0.1 TH/MM3 (0-0.4); EOSINOPHIL % 2.6 % (0.0-4.0); HEMOGLOBIN 12.2 GM/DL (13.0-17.0); LYMPH % 40.6 % (9.0-44.0); LYMPHOCYTE # 1.7 TH/MM3 (1.0-4.8); MEAN CELL VOLUME 98.6 FL (80.0-100.0); MEAN CORPUSCULAR HEMOGLOBIN 34.4 PG (27.0-34.0); MEAN CORPUSCULAR HGB CONC 34.9 % (32.0-36.0); MEAN PLATELET VOLUME 8.9 FL (7.0-11.0); MONO % 10.4 % (0.0-8.0); MONOCYTE # 0.4 TH/MM3 (0-0.9); NEUT % 45.9 % (16.0-70.0); PLATELET COUNT 49 TH/MM3 (150-450); RED BLOOD COUNT 3.55 MIL/MM3 (4.50-5.90); RED CELL DISTRIBUTION WIDTH 14.2 % (11.6-17.2); WHITE BLOOD COUNT 4.2 TH/MM3 (4.0-11.0)
[2017-11-23 07:30] LABS: INTERNATIONAL NORMALIZED RATIO 1.3 RATIO; PROTHROMBIN TIME - PATIENT 13.3 SEC (9.8-11.6)
[2017-11-23] MEDS: PANTOPRAZOLE INJ 80 MG in SODIUM CHLORIDE 0.9% INJ 100 ML IV SCH (07:39)
[2017-11-23 07:53] LABS: BICARBONATE 25.2 MEQ/L (21.0-32.0); CALCIUM 7.9 MG/DL (8.5-10.1); CREATININE 1.03 MG/DL (0.60-1.30)
[2017-11-23 08:00] VITALS: BP 116/67; PULSE 78; RESP 18; TEMP 97; O2SAT 98
[2017-11-23] MEDS: DOCUSATE SODIUM 50 MG/SENNA 8.6 MG TAB PO SCH (08:42)
[2017-11-23] MEDS: GABAPENTIN 400 MG CAP PO SCH ×2 (08:42→10:57)
--- NOTE | 2017-11-23 09:54 | HHI.GIFU ---
Subjective Remarks Pt going for EGD/colonoscopy today. No new complaints. Objective Vitals I&O Vital Signs Date Time Temp Pulse Resp B/P (MAP) Pulse Ox O2 Delivery O2 Flow Rate FiO2 11/23/17 08:00 97.0 78 18 116/67 (83) 98 11/23/17 00:00 98.1 82 16 131/83 (99) 100 11/22/17 20:00 97.2 83 16 120/76 (91) 100 11/22/17 16:00 97.4 76 21 125/71 (89) 100 11/22/17 12:00 97.0 91 17 142/71 (94) 98 I/O 11/22/17 11/22/17 11/22/17 11/23/17 11/23/17 11/23/17 07:00 15:00 23:00 07:00 15:00 23:00 Intake Total 630 ml 200 ml 915 ml 2340 ml 100 ml Output Total 450 ml 600 ml 2500 ml Balance 180 ml 200 ml 315 ml -160 ml 100 ml Intake Oral 480 ml 915 ml 2340 ml IV Total 150 ml 200 ml 100 ml Output Urine Total 450 ml 600 ml 2500 ml # Voids 4 4 # Bowel Movements 0 15 Laboratory Laboratory Tests Test 11/23/17 06:54 White Blood Count 4.2 Red Blood Count 3.55 Hemoglobin 12.2 Hematocrit 35.0 Mean Corpuscular Volume 98.6 Mean Corpuscular Hemoglobin 34.4 Mean Corpuscular Hemoglobin Concent 34.9 Red Cell Distribution Width 14.2 Platelet Count 49 Mean Platelet Volume 8.9 Neutrophils (%) (Auto) 45.9 Lymphocytes (%) (Auto) 40.6 Monocytes (%) (Auto) 10.4 Eosinophils (%) (Auto) 2.6 Basophils (%) (Auto) 0.5 Neutrophils # (Auto) 1.9 Lymphocytes # (Auto) 1.7 Monocytes # (Auto) 0.4 Eosinophils # (Auto) 0.1 Basophils # (Auto) 0.0 CBC Comment AUTO DIFF Differential Comment AUTO DIFF CONFIRMED Platelet Estimate LOW Platelet Morphology Comment NORMAL Red Cell Morphology Comment NORMAL Prothrombin Time 13.3 Prothromb Time International Ratio 1.3 Blood Urea Nitrogen 7 Creatinine 1.03 Random Glucose 101 Calcium Level 7.9 Sodium Level 141 Potassium Level 3.8 Chloride Level 109 Carbon Dioxide Level 25.2 Anion Gap 7 Estimat Glomerular Filtration Rate 75 Physical Exam HEENT: normocephalic; atraumatic; no jaundice. CHEST: respirations unlabored ABDOMEN: Soft, nondistended, nontender; no hepatosplenomegaly; bowel sounds + EXTREMITIES: No clubbing, cyanosis, or edema. Assessment and Plan Assessment: (1) Constipation ICD Codes: K59.00 - Constipation, unspecified (2) GI bleed ICD Codes: K92.2 - Gastrointestinal hemorrhage, unspecified (3) Hepatitis C ICD Codes: B19.20 - Unspecified viral hepatitis C without hepatic coma (4) Thrombocytopenia ICD Codes: D69.6 - Thrombocytopenia Status: Acute (5) Abdominal pain ICD Codes: R10.9 - Unspecified abdominal pain Status: Acute Plan going for endoscopy today, stable PLAN -EGD and colonoscopy TODAY - hold anticoag - monitor labs - continue PPI - notify GI of active bleeding - further recs to follow depending on results above This patient was seen by myself and and this note is written on his behalf Lashonda Lezama Nov 23, 2017 09:54
[2017-11-23] MEDS ORDERED: SIMETHICONE SUSP DROPS 40 MG/0.6 ML 30 ML BTL PO ONE (09:59)
[2017-11-23] MEDS: THIAMINE HCL 100 MG TAB PO SCH (10:57)
[2017-11-23] MEDS: MULTIVITAMINS/MINERALS THERAPEUTIC TAB PO SCH (10:57)
[2017-11-23] MEDS: FOLIC ACID 1 MG TAB PO SCH (10:57)
[2017-11-23] MEDS: SODIUM CHLORIDE 0.9% FLUSH 10 ML FLUSH IV FLUSH SCH (11:04)
[2017-11-23 12:00] VITALS: BP 118/79; PULSE 71; RESP 19; TEMP 96.1; O2SAT 100
[2017-11-23] MEDS ORDERED: LIDOCAINE HCL 1% PF 5 ML SYRINGE OTHER ONE (12:00)
[2017-11-23] MEDS ORDERED: PROPOFOL 200 MG/20 ML AMP IV ONE (12:00)
[2017-11-23] MEDS ORDERED: PHENYLEPH/NS 1000 MCG/10 ML SYR IV ONE (12:00)
[2017-11-23] MEDS ORDERED: NADO40TA PO (15:15)
[2017-11-23] MEDS ORDERED: PROT40TA PO (15:15)
--- NOTE | 2017-11-23 15:32 | HHI.PR ---
Subjective Remarks resting in bed had EGD today awaintg final report no n/v Objective Vitals Vital Signs Date Time Temp Pulse Resp B/P (MAP) Pulse Ox O2 Delivery O2 Flow Rate FiO2 11/23/17 12:00 96.1 71 19 118/79 (92) 100 11/23/17 11:08 18 11/23/17 10:08 97.1 86 16 109/64 (79) 99 11/23/17 08:00 97.0 78 18 116/67 (83) 98 11/23/17 00:00 98.1 82 16 131/83 (99) 100 11/22/17 20:00 97.2 83 16 120/76 (91) 100 11/22/17 16:00 97.4 76 21 125/71 (89) 100 I/O 11/22/17 11/22/17 11/22/17 11/23/17 11/23/17 11/23/17 07:00 15:00 23:00 07:00 15:00 23:00 Intake Total 630 ml 200 ml 915 ml 2340 ml 600 ml Output Total 450 ml 600 ml 2500 ml Balance 180 ml 200 ml 315 ml -160 ml 600 ml Intake Oral 480 ml 915 ml 2340 ml IV Total 150 ml 200 ml 100 ml Other 500 ml Output Urine Total 450 ml 600 ml 2500 ml # Voids 4 4 # Bowel Movements 0 15 Result Diagram: 11/23/17 0654 11/23/17 0654 Objective Remarks GENERAL: This is a well-nourished, well-developed patient, in no apparent distress. CARDIOVASCULAR: Regular rate and rhythm without murmurs, gallops, or rubs. RESPIRATORY: Clear to auscultation. Breath sounds equal bilaterally. No wheezes , rales, or rhonchi. GASTROINTESTINAL: Abdomen soft, non-tender, nondistended. Normal active bowel sounds MUSCULOSKELETAL: Extremities without clubbing, cyanosis, or edema. NEURO: Alert & Oriented x4 to person, place, time, situation. Moves all ext x4 A/P Problem List: (1) GI bleed ICD Code: K92.2 - Gastrointestinal hemorrhage, unspecified (2) Hepatitis C ICD Code: B19.20 - Unspecified viral hepatitis C without hepatic coma (3) Thrombocytopenia ICD Code: D69.6 - Thrombocytopenia Status: Acute (4) Alcohol abuse ICD Code: F10.10 - Alcohol abuse Status: Acute (5) Tobacco abuse ICD Code: Z72.0 - Tobacco abuse Status: Acute Assessment and Plan 11/22/17: s/p EGD , verbal report esoph varices bleed , will start nadolol, PPI , dc pending final report i d/w GI PPAstill not having final report from attending A/P This is a 57 yo male with a medical history significant for hep C, alcohol abuse , tobacco abuse presented to the ER with complaints of hematemesis, abdominal pain, and melena. GI bleed and abdominal pain - Hemoccult positive - Baseline appears to be 14, 13.5 on admission, 11.2 this morning - GI consulted: EGD colonoscopy on 11/23 sepsis thousand 18 - Splenic ultrasound: Splenomegaly. There are changes of cirrhosis and presumed portal hypertension on prior CT. - Protonix drip Hepatitis C - Elevated LFTs from baseline, elevated INR 1.4. - We'll monitor closely - GI is following Thrombocytopenia - Chronic - Transfuse as necessary Tobacco abuse - Counsoled Alcohol Abuse - CIWA - multivitamin, thiamine, folate Discharge Planning later today after cleared by Erin Domínguez MD Nov 23, 2017 15:32
[2017-11-23 16:00] VITALS: BP 138/86; PULSE 84; RESP 20; TEMP 97.3; O2SAT 94
[2017-11-23 16:17] LABS: HEMOGLOBIN A1C 5.1 % (4.3-6.0)
--- NOTE | 2017-11-30 17:30 | HHI.DS ---
Discharge Summary Admission Date Nov 21, 2017 at 15:19 Discharge Date: Nov 23, 2017 Admitting Diagnosis (1) GI bleed ICD Code: K92.2 - Gastrointestinal hemorrhage, unspecified (2) Hepatitis C ICD Code: B19.20 - Unspecified viral hepatitis C without hepatic coma (3) Thrombocytopenia ICD Code: D69.6 - Thrombocytopenia Status: Acute (4) Alcohol abuse ICD Code: F10.10 - Alcohol abuse Status: Acute (5) Tobacco abuse ICD Code: Z72.0 - Tobacco abuse Status: Acute Procedures EGD as mentioned below Brief History - From Admission This is a 57-year-old male with PMH of Hepatitis C, Alcohol Abuse and Tobacco Abuse who presented to the ER with complaints of hematemesis, epigastric abdominal pain and melena. States symptoms started approx 2 days ago. Epigastric pain is burning, constant, 8/10, no alleviating/exacerbating factors. Moderate severity. On arrival, BP 139/88, HR 108, O2 sat are present RA, Afebrile. Platelets 54, previously 36 on 03/29/17. Chemistry unremarkable. LFTs increased, baseline in comparison./03/29/17. Lipase normal. INR 1.4. UA negative. Alcohol negative. CXR no acute findings. Started on Protonix gtt in ER. Hemoccult + PE at Discharge GENERAL: This is a well-nourished, well-developed patient, in no apparent distress. CARDIOVASCULAR: Regular rate and rhythm without murmurs, gallops, or rubs. RESPIRATORY: Clear to auscultation. Breath sounds equal bilaterally. No wheezes , rales, or rhonchi. GASTROINTESTINAL: Abdomen soft, non-tender, nondistended. Normal active bowel sounds MUSCULOSKELETAL: Extremities without clubbing, cyanosis, or edema. NEURO: Alert & Oriented x4 to person, place, time, situation. Moves all ext x4 Hospital Course This is a 57 yo male with a medical history significant for hep C, alcohol abuse , tobacco abuse presented to the ER with complaints of hematemesis, abdominal pain, and melena. GI bleed and abdominal pain,Hemoccult positive, started on Protonix drip GI consulted: EGD colonoscopy on 11/23 showed esophageal varices bleed, patient started on nadolol, will be discharge on PPI Splenic ultrasound: Splenomegaly. There are changes of cirrhosis and presumed portal hypertension on prior CT. patient has history of hepatitis C,Elevated LFTs from baseline, elevated INR 1.4.to be followed as an outpatient I discussed with GI and with the patient plan was to discharge and follow-up as an outpatient [id number] encounter performed with the patient on discharge day, as well as physical exam, summary of hospitalization course and postdischarge plan has been D/W the patient. D/W nurse D/W case preparer and liner Discharge medications reviewed and printed and signed, post discharge follow up visit with PCP and other specialist as well as Brief hospital course and discharge summary has been placed. Time spent35 minutes Pt Condition on Discharge: Fair Discharge Disposition: Discharge Home Discharge Time: > 30 minutes Discharge Instructions DIET: Follow Instructions for: Heart Healthy Diet Activities you can perform: Weight Bearing as Donnie Follow up Referrals: Gastroenterology - 2 Weeks with Gumaro Crane MD New Medications: Nadolol (Nadolol) 40 Mg Tab 40 MG PO DAILY for Esoph vini, #30 TAB 0 Refills Pantoprazole (Protonix) 40 Mg Tab 40 MG PO DAILY for Reflux, #30 TAB 0 Refills Continued Medications: Gabapentin (Gabapentin) 800 Mg Tab 800 MG PO TID, #90 TAB 0 Refills Erin Johnson MD Nov 30, 2017 17:30
== END 2017-11-23 16:51 | disposition home or self-care (01) | DRG 378 ==
LOC: NEPC 17:09 → NEDA 19:26 → NEPFCDU 19:48 → OBSVTOIN 11-21 15:19 → N07B 11-21 16:57
PROVIDERS: ADMIT Hospitalist; ATTEND Hospitalist
PROC: 0DB68ZX Excision of Stomach, Via Natural or Artificial Opening Endoscopic, Diagnostic (ICD-10-PCS; principal; 2017-11-23 09:37)
DX: K92.0 Hematemesis (principal); D68.9 Coagulation defect, unspecified; K76.6 Portal hypertension; D69.6 Thrombocytopenia, unspecified; G62.9 Polyneuropathy, unspecified; R16.1 Splenomegaly, not elsewhere classified; D50.9 Iron deficiency anemia, unspecified; F10.10 Alcohol abuse, uncomplicated; I10 Essential (primary) hypertension; K20.9 Esophagitis, unspecified; B18.2 Chronic viral hepatitis C; I85.00 Esophageal varices without bleeding; K29.70 Gastritis, unspecified, without bleeding; F17.210 Nicotine dependence, cigarettes, uncomplicated; K59.00 Constipation, unspecified; K74.60 Unspecified cirrhosis of liver
CPT/HCPCS: 71010; 76770; 80048; 80053; 80307; 81001; 82948; 83036; 83690; 85025; 85610; 85730; 86850; 86900; 86901; 88305; 88312; 93005; 96361; 96365; 96366; 96375; 96376; C9113; G0378; J2270; J2370; J2405; J2543; J7030; J7040

== ENCOUNTER 2017-11-30 11:11 | Emergency (ER) | payer OTHER ==
[~2017-11-30 11:11] MED LIST changes: -METR-1 PO; +NADO40TA PO; +PROT40TA PO
[2017-11-30 11:13] VITALS: BP 193/94; PULSE 91; RESP 14; TEMP 97.5; O2SAT 100
[2017-11-30 12:30] LABS: AUTOMATED NEUTROPHIL # 2.3 TH/MM3 (1.8-7.7); BASOPHIL % 0.7 % (0.0-2.0); EOSINOPHIL # 0.1 TH/MM3 (0-0.4); EOSINOPHIL % 2.2 % (0.0-4.0); HEMATOCRIT 39.9 % (39.0-51.0); HEMOGLOBIN 14.1 GM/DL (13.0-17.0); LYMPH % 24.2 % (9.0-44.0); LYMPHOCYTE # 0.9 TH/MM3 (1.0-4.8); MEAN CELL VOLUME 97.9 FL (80.0-100.0); MEAN CORPUSCULAR HEMOGLOBIN 34.5 PG (27.0-34.0); MEAN CORPUSCULAR HGB CONC 35.3 % (32.0-36.0); MEAN PLATELET VOLUME 8.5 FL (7.0-11.0); MONO % 11.6 % (0.0-8.0); MONOCYTE # 0.4 TH/MM3 (0-0.9); NEUT % 61.3 % (16.0-70.0); PLATELET COUNT 60 TH/MM3 (150-450); RED BLOOD COUNT 4.08 MIL/MM3 (4.50-5.90); WHITE BLOOD COUNT 3.8 TH/MM3 (4.0-11.0)
[2017-11-30 12:40] LABS: INTERNATIONAL NORMALIZED RATIO 1.3 RATIO; PROTHROMBIN TIME - PATIENT 12.9 SEC (9.8-11.6)
[2017-11-30 12:48] LABS: ALBUMIN 3.3 GM/DL (3.4-5.0); ALT (GPT) 105 U/L (12-78); AST (GOT) 111 U/L (15-37); BICARBONATE 27.4 MEQ/L (21.0-32.0); BLOOD UREA NITROGEN 9 MG/DL (7-18); CALCIUM 8.5 MG/DL (8.5-10.1); CHLORIDE 103 MEQ/L (98-107); CREATININE 1.06 MG/DL (0.60-1.30); GLOMERULAR FILTRATION RATE 72 ML/MIN (>89); GLUCOSE,RANDOM 115 MG/DL (74-106); LIPASE 229 U/L (73-393); SODIUM (NA) 137 MEQ/L (136-145)
[2017-11-30 12:50] LABS: ALKALINE PHOSPHATASE 248 U/L (45-117); TOTAL PROTEIN 8.6 GM/DL (6.4-8.2)
[2017-11-30] MEDS ORDERED: NORC5TAB PO (13:18)
[2017-11-30] MEDS ORDERED: SODIUM CHLORID 0.9% 500 ML INJ 500 ML IV ONE (14:30)
[2017-11-30] MEDS ORDERED: ONDANSETRON HCL 4 MG/2 ML VIAL IV PUSH ONE (14:30)
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
--- NOTE | 2017-11-30 15:24 | PD ---
Physical Exam Date Seen by Provider: Nov 30, 2017 Narrative Patient presents with a chief complaint of abdominal pain. This patient was just admitted here on 11/21 pain associated with hematochezia. Data Data Last Documented VS Vital Signs Date Time Temp Pulse Resp B/P (MAP) Pulse Ox O2 Delivery O2 Flow Rate FiO2 11/30/17 11:13 97.5 91 14 193/94 (127) 100 Orders Orders Complete Blood Count With Diff (11/30/17 11:24) Comprehensive Metabolic Panel (11/30/17 11:24) Lipase (11/30/17 11:24) Prothrombin Time / Inr (Pt) (11/30/17 11:24) Act Partial Throm Time (Ptt) (11/30/17 11:24) Ct Abd/Pel W Iv Contrast(Rout) (11/30/17 14:20) Ondansetron Inj (Zofran Inj) (11/30/17 14:30) Sodium Chlorid 0.9% 500 Ml Inj (Ns 500 M (11/30/17 14:30) Labs Laboratory Tests Test 11/30/17 12:10 White Blood Count 3.8 TH/MM3 Red Blood Count 4.08 MIL/MM3 Hemoglobin 14.1 GM/DL Hematocrit 39.9 % Mean Corpuscular Volume 97.9 FL Mean Corpuscular Hemoglobin 34.5 PG Mean Corpuscular Hemoglobin Concent 35.3 % Red Cell Distribution Width 14.0 % Platelet Count 60 TH/MM3 Mean Platelet Volume 8.5 FL Neutrophils (%) (Auto) 61.3 % Lymphocytes (%) (Auto) 24.2 % Monocytes (%) (Auto) 11.6 % Eosinophils (%) (Auto) 2.2 % Basophils (%) (Auto) 0.7 % Neutrophils # (Auto) 2.3 TH/MM3 Lymphocytes # (Auto) 0.9 TH/MM3 Monocytes # (Auto) 0.4 TH/MM3 Eosinophils # (Auto) 0.1 TH/MM3 Basophils # (Auto) 0.0 TH/MM3 CBC Comment AUTO DIFF Differential Comment AUTO DIFF CONFIRMED Platelet Estimate LOW Platelet Morphology Comment NORMAL Prothrombin Time 12.9 SEC Prothromb Time International Ratio 1.3 RATIO Activated Partial Thromboplast Time 28.8 SEC Blood Urea Nitrogen 9 MG/DL Creatinine 1.06 MG/DL Random Glucose 115 MG/DL Total Protein 8.6 GM/DL Albumin 3.3 GM/DL Calcium Level 8.5 MG/DL Alkaline Phosphatase 248 U/L Aspartate Amino Transf (AST/SGOT) 111 U/L Alanine Aminotransferase (ALT/SGPT) 105 U/L Total Bilirubin 1.0 MG/DL Sodium Level 137 MEQ/L Potassium Level 3.8 MEQ/L Chloride Level 103 MEQ/L Carbon Dioxide Level 27.4 MEQ/L Anion Gap 7 MEQ/L Estimat Glomerular Filtration Rate 72 ML/MIN Lipase 229 U/L MDM Supervised Visit with MOISES: Yes Narrative Course I, Dr. Lemos, have reviewed the advance practice practitioner's documentation and am in agreement, met with the patient face to face, made the diagnosis, and the medical decision making was done by me. *My assessment and Findings: Patient is awake and alert and asking for pain medication. His abdomen has diffuse tenderness. Please see Carolee Bass NP's note for results of laboratory and radiographic evaluation, ED course, final diagnosis and disposition Flory Lemos MD Nov 30, 2017 15:24
[2017-11-30] MEDS ORDERED: IOHEXOL 350 MG/ML 10 ML VIAL (for RAD DIAG) IVCONTRAST ONE (15:25)
--- NOTE | 2017-11-30 15:41 | RADRPT ---
EXAM DATE/TIME: 11/30/2017 15:23 [facility] COMPARISON: CT ABDOMEN & PELVIS W CONTRAST, March 08, 2017, 1:56. INDICATIONS : Abdominal pain, vomiting. Known cirrhosis. IV CONTRAST: 95 cc Omnipaque 350 (iohexol) IV ORAL CONTRAST: No oral contrast ingested. RADIATION DOSE: 5.31 CTDIvol (mGy) MEDICAL HISTORY : Hypertension. Ulcers. Hepatitis C.Colitis SURGICAL HISTORY : None. ENCOUNTER: Initial ACUITY: 3 days PAIN SCALE: 8/10 LOCATION: Left lower quadrant TECHNIQUE: Volumetric scanning of the abdomen and pelvis was performed. Using automated exposure control and ad justment of the mA and/or kV according to patient size, radiation dose was kept as low as reasonably achievable to obtain optimal diagnostic quality images. DICOM format image data is available electro nically for review and comparison. FINDINGS: LOWER LUNGS: The visualized lower lungs are clear. LIVER: Liver remains stable in appearance with lobular cirrhotic appearing upper margin. There is a stable c yst in the left lobe. There are no new masses or ductal dilatation. There is mild hepatic steatosis. The gallbladder is unremarkable. SPLEEN: There is mild splenomegaly with no focal lesion. PANCREAS: Within normal limits. KIDNEYS: Normal in size and shape. There is no mass, stone or hydronephrosis. ADRENAL GLANDS: Within normal limits. VASCULAR: There is no aortic aneurysm. BOWEL/MESENTERY: There is a nonspecific, nonobstructive bowel gas pattern with multiple loops of nondilated air-contai elizabeth small bowel with multiple small air-fluid levels. There is no free air or fluid. ABDOMINAL WALL: Within normal limits. RETROPERITONEUM: There is no lymphadenopathy. BLADDER: No wall thickening or mass. REPRODUCTIVE: Within normal limits. INGUINAL: There is no lymphadenopathy or hernia. MUSCULOSKELETAL: Within normal limits for patient age. CONCLUSION: 1. Stable appearance of the liver with cirrhosis and fatty infiltration. There is a stable cyst. 2. Mild splenomegaly. 3. Nonspecific, nonobstructive bowel gas pattern which may represent a mild ileus and/or gastroenteri tis. Allan May MD on November 30, 2017 at 15:35 Board Certified Radiologist. This report was verified electronically.
[2017-11-30] MEDS ORDERED: ZOFR4TAB3 SL (15:53)
[2017-11-30 16:10] VITALS: BP 162/88; PULSE 80; RESP 15; O2SAT 99
== END 2017-11-30 16:15 | disposition home or self-care (01) ==
LOC: NEPD 11:11
DX: K52.9 Noninfective gastroenteritis and colitis, unspecified (principal); M19.90 Unspecified osteoarthritis, unspecified site; I10 Essential (primary) hypertension; B19.20 Unspecified viral hepatitis C without hepatic coma; F17.210 Nicotine dependence, cigarettes, uncomplicated; Z72.89 Other problems related to lifestyle
CPT/HCPCS: 74177; 80053; 83690; 85025; 85610; 85730; 96361; 96374; 99285; J2405; J7040; Q9967

== ENCOUNTER 2018-01-28 09:59 | Emergency (ER) | payer OTHER ==
[~2018-01-28] VITALS: Ht 182.9 cm; Wt 76.0 kg
[~2018-01-28 09:59] MED LIST changes: +NORC5TAB PO; +ZOFR4TAB3 SL
[2018-01-28 10:03] VITALS: BP 148/74; PULSE 97; RESP 16; TEMP 97.9; O2SAT 100
[2018-01-28] MEDS ORDERED: AMLO5TAB2 PO (11:09)
[2018-01-28] MEDS ORDERED: ORPHENADRINE INJ 60 MG/2 ML AMP IM ONE (11:15)
[2018-01-28] MEDS ORDERED: KETOROLAC TROMETHAMINE 60 MG/2 ML (IM) VIAL IM ONE (11:15)
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
[2018-01-28] MEDS ORDERED: IBUP-232 PO (12:18)
[2018-01-28] MEDS ORDERED: CYCL10TA PO (12:18)
== END 2018-01-28 12:48 | disposition home or self-care (01) ==
LOC: NEPD 09:59
DX: M25.512 Pain in left shoulder (principal); M54.5 Low back pain; G89.29 Other chronic pain; F17.200 Nicotine dependence, unspecified, uncomplicated; I10 Essential (primary) hypertension; V19.40XA Pedal cycle driver injured in collision with unspecified motor vehicles in traffic accident, initial encounter; Y93.55 Activity, bike riding
CPT/HCPCS: 72100; 73030; 96372; 99284; J1885; J2360

== ENCOUNTER → 2018-02-25 | Outpatient (CLI) | payer OTHER ==
[~2018-02-25] MED LIST changes: +AMLO5TAB2 PO; +CYCL10TA PO; +IBUP-232 PO; -NADO40TA PO; -NORC5TAB PO; -PROT40TA PO; -ZOFR4TAB3 SL
--- NOTE | 2018-02-25 12:13 | RADRPT ---
EXAM DATE/TIME: 02/25/2018 10:37 [facility] COMPARISON: CT ABDOMEN & PELVIS W CONTRAST, November 30, 2017, 15:23. EXTERNAL COMPARISON : [facility], US LIVER, September 03, 2016 INDICATIONS : Chronic hepatitis C. MEDICAL HISTORY : Hepatitis C. Hypertension. SURGICAL HISTORY : Right shoulder surgery. Left leg surgery. ENCOUNTER: Subsequent ACUITY: 1 day PAIN SCORE: 0/10 LOCATION: Abdomen. MEASUREMENTS: LIVER: 14.9 cm length COMMON DUCT: 6 mm RIGHT KIDNEY: 9.2 x 4.6 x 4.5 cm LEFT KIDNEY: 11.2 x 3.5 x 5.1 cm SPLEEN: 13.6 cm length AORTA: 1.6cm maximal FINDINGS: LIVER: Small, heterogeneous and nodular liver present. There is normal flow velocity and direction in the ma in portal vein. A 12 mm simple, benign cyst is seen of the left hepatic lobe. No other focal hepatic lesions are demonstrated. COMMON DUCT: No intraluminal mass or stone visualized. GALLBLADDER: Contains no stones, demonstrates no wall thickening or pericholecystic fluid. PANCREAS: The visualized portions are within normal limits. RIGHT KIDNEY: No hydronephrosis, stone or mass. LEFT KIDNEY: No hydronephrosis, stone or mass. SPLEEN: No focal lesion. AORTA: Patchy atherosclerotic plaque. No aneurysm seen. IVC: Within normal limits. CONCLUSION: 1. Cirrhotic liver and an enlarged spleen. Normal flow velocity and direction in the main portal vein . 2. No concerning focal hepatic lesions. There is a simple, benign cyst of the left lobe. 3. Atherosclerotic aorta. No aneurysm. Diaz Ramsey MD on February 25, 2018 at 12:09 Board Certified Radiologist. This report was verified electronically.
== END ==
LOC: HRAD 09:08
DX: B18.2 Chronic viral hepatitis C (principal)
CPT/HCPCS: 76700

== ENCOUNTER 2018-03-28 02:33 | Inpatient (IN) | payer OTHER ==
[2018-03-28] MEDS: PANTOPRAZOLE SODIUM 40 MG VIAL IVP (02:55)
[2018-03-28] MEDS: SODIUM CHLOR 0.9% 1000 ML INJ 1,000 ML IV ×2 (02:55→05:32)
[2018-03-28] MEDS: MORPHINE SULFATE 4 MG/ML INJ IV PUSH ×4 (02:56→22:16)
[2018-03-28] MEDS: ONDANSETRON HCL 4 MG/2 ML VIAL IVP (02:56)
[2018-03-28] MEDS ORDERED: SODIUM CHLORIDE 0.9% FLUSH 10 ML FLUSH IVF (03:00)
[2018-03-28 03:08] LABS: AUTOMATED NEUTROPHIL # 2.8 TH/MM3 (1.8-7.7); BASOPHIL % 0.5 % (0.0-2.0); EOSINOPHIL # 0.1 TH/MM3 (0-0.4); EOSINOPHIL % 1.5 % (0.0-4.0); HEMATOCRIT 40.6 % (39.0-51.0); HEMOGLOBIN 14.2 GM/DL (13.0-17.0); LYMPH % 51.4 % (9.0-44.0); LYMPHOCYTE # 3.9 TH/MM3 (1.0-4.8); MEAN CELL VOLUME 94.8 FL (80.0-100.0); MEAN CORPUSCULAR HEMOGLOBIN 33.1 PG (27.0-34.0); MEAN CORPUSCULAR HGB CONC 34.9 % (32.0-36.0); MONO % 10.5 % (0.0-8.0); MONOCYTE # 0.8 TH/MM3 (0-0.9); NEUT % 36.1 % (16.0-70.0); PLATELET COUNT 57 TH/MM3 (150-450); RED BLOOD COUNT 4.28 MIL/MM3 (4.50-5.90); WHITE BLOOD COUNT 7.6 TH/MM3 (4.0-11.0)
[2018-03-28 03:10] LABS: HEMO FLAGS AUTO DIFF
[2018-03-28 03:20] LABS: APTT (PATIENT) 28.8 SEC (24.3-30.1); INTERNATIONAL NORMALIZED RATIO 1.5 RATIO; PROTHROMBIN TIME - PATIENT 14.7 SEC (9.8-11.6)
[2018-03-28] MEDS: OCTREOTIDE INJ 500 MCG in SODIUM CHLORID 0.9% 500 ML INJ 500 ML IV ×2 (03:21→13:19)
[2018-03-28 03:24] LABS: AMMONIA 74 MCMOL/L (11-32)
[2018-03-28 03:34] LABS: ALBUMIN 2.9 GM/DL (3.4-5.0); ALT (GPT) 118 U/L (12-78); ANION GAP 8 MEQ/L (5-15); AST (GOT) 212 U/L (15-37); BICARBONATE 28.2 MEQ/L (21.0-32.0); BLOOD UREA NITROGEN 13 MG/DL (7-18); CALCIUM 7.8 MG/DL (8.5-10.1); CHLORIDE 108 MEQ/L (98-107); CREATININE 0.94 MG/DL (0.60-1.30); GLOMERULAR FILTRATION RATE 83 ML/MIN (>89); GLUCOSE,RANDOM 101 MG/DL (74-106); LIPASE 247 U/L (73-393); POTASSIUM 4.2 MEQ/L (3.5-5.1); SODIUM (NA) 144 MEQ/L (136-145)
[2018-03-28 03:35] LABS: PLATELET ESTIMATE SMEAR LOW (NORMAL); PLATELET MORPHOLOGY NORMAL (NORMAL); SCAN/DIFF AUTO DIFF CONFIRMED
[2018-03-28 03:36] LABS: ALKALINE PHOSPHATASE 230 U/L (45-117); TOTAL BILIRUBIN ADULT 1.3 MG/DL (0.2-1.0); TOTAL PROTEIN 7.4 GM/DL (6.4-8.2)
[2018-03-28] MEDS: diphenhydrAMINE HCL 50 MG/ML VIAL IV PUSH (03:56)
[2018-03-28] MEDS: METOCLOPRAMIDE HCL 10 MG/2 ML VIAL IV PUSH (03:56)
[2018-03-28] MEDS: IOHEXOL 350 MG/ML 10 ML VIAL (for RAD DIAG) IVCONTRAST (04:45)
[2018-03-28] MEDS: PROMETHAZINE INJ 25 MG/ML VIAL IM (05:32)
[2018-03-28] MEDS ORDERED: CHLORHEXIDINE GLUCONATE 2 % 1 PACK (2 CLOTHS) TOP (05:45)
[2018-03-28] MEDS ORDERED: RESP: ALBUTEROL 2.5 MG/3 ML NEB (PRN) INH (05:45)
[2018-03-28] MEDS: NURSING INFORMATION XX (05:45)
[2018-03-28] MEDS ORDERED: SODIUM CHLORIDE 0.9% FLUSH 10 ML FLUSH IV FLUSH (05:45)
[2018-03-28] MEDS ORDERED: MORPHINE SULFATE 4 MG/ML INJ IV PUSH (05:45)
[2018-03-28] MEDS: PANTOPRAZOLE INJ 80 MG in SODIUM CHLORIDE 0.9% INJ 100 ML IV ×2 (06:06→13:56)
[2018-03-28] MEDS: PHYTONADIONE INJ 10 MG in SODIUM CHLORIDE 0.9% INJ 50 ML IV (06:19)
[2018-03-28] MEDS: cefTRIAXone INJ 1,000 MG in SODIUM CHLORIDE 0.9% INJ 100 ML IV (06:51)
[2018-03-28] MEDS ORDERED: PROMETHAZINE INJ 25 MG/ML VIAL IM (07:15)
[2018-03-28] MEDS: ONDANSETRON HCL 4 MG/2 ML VIAL IV PUSH ×3 (07:55→22:16)
[2018-03-28] MEDS ORDERED: POTASSIUM PHOSPHATE MONOBASIC 500 MG TAB PO/TUBE (08:45)
[2018-03-28] MEDS ORDERED: POTASSIUM PHOSPHATE INJ 30 MMOL in SODIUM CHLOR 0.9% 250 ML INJ 250 ML IV (08:45)
[2018-03-28] MEDS ORDERED: POTASSIUM CHLOR 40 MEQ PREMIX 100 ML IV ×2 (08:45)
[2018-03-28] MEDS ORDERED: FLUMAZENIL 0.5 MG/5 ML VIAL IV PUSH (08:45)
[2018-03-28] MEDS ORDERED: MAGNESIUM SULFATE INJ 2 GM in SODIUM CHLORIDE 0.9% INJ 96 ML IV (08:45)
[2018-03-28] MEDS ORDERED: POTASSIUM PHOSPHATE MONOBASIC 500 MG TAB PO (08:45)
[2018-03-28] MEDS ORDERED: POTASSIUM CHLOR 20 MEQ PREMIX 100 ML IV ×2 (08:45)
[2018-03-28] MEDS ORDERED: MAGNESIUM SULFATE INJ 4 GM in SODIUM CHLORIDE 0.9% INJ 92 ML IV (08:45)
[2018-03-28] MEDS ORDERED: LORazepam 2 MG TAB PO (08:45)
[2018-03-28] MEDS ORDERED: POTASSIUM CHLORIDE 25 MEQ EFFERVESCENT TAB PO (08:45)
[2018-03-28] MEDS ORDERED: MAGNESIUM OXIDE 400 MG TAB PO (08:45)
[2018-03-28] MEDS ORDERED: LORazepam 2 MG/ML VIAL IV PUSH ×2 (08:45)
[2018-03-28] MEDS: SODIUM CHLORIDE 0.9% FLUSH 10 ML FLUSH IV FLUSH (09:00)
[2018-03-28] MEDS: LACTULOSE SYRUP 20 GM/30 ML CUP PO (09:44)
[2018-03-28] MEDS: GABAPENTIN 400 MG CAP PO ×3 (09:44→18:53)
[2018-03-28] MEDS: LACTATED RINGER'S 1000 ML INJ 1,000 ML IV (10:42)
[2018-03-28] MEDS: THIAMINE INJ 100 MG in SODIUM CHLORIDE 0.9% INJ 100 ML IV (10:42)
[2018-03-28 11:11] LABS: HEMOGLOBIN 12.2 GM/DL (13.0-17.0)
[2018-03-28 11:11] LABS: HEMATOCRIT 35.1 % (39.0-51.0)
[2018-03-28 11:12] LABS: REVIEW FLAG FINAL
[2018-03-28 11:19] LABS: APHERESIS COMMENT 1 1
[2018-03-28] MEDS: MULTIVITAMIN INJ 10 ML, FOLIC ACID INJ 1 MG in SODIUM CHLORID 0.9% 500 ML INJ 500 ML IV (13:18)
[2018-03-28 13:54] LABS: MRSA PCR SURVEILLANCE MRSA NOT DETECTED (NOT DETECT)
[2018-03-28 15:36] LABS: HEMATOCRIT 26.8 % (39.0-51.0)
[2018-03-28 15:36] LABS: HEMOGLOBIN 9.3 GM/DL (13.0-17.0)
[2018-03-28 15:43] LABS: REVIEW FLAG FINAL
[2018-03-28] MEDS: LORazepam 2 MG/ML VIAL IV PUSH (16:13)
[2018-03-28] MEDS: MAGNESIUM CITRATE SOLN 300 ML BTL PO ×2 (16:14→18:53)
[2018-03-28 21:02] LABS: HEMATOCRIT 28.3 % (39.0-51.0)
[2018-03-28 21:06] LABS: REVIEW FLAG FINAL
[2018-03-29] MEDS: PANTOPRAZOLE INJ 80 MG in SODIUM CHLORIDE 0.9% INJ 100 ML IV ×3 (01:28→20:11)
[2018-03-29] MEDS: MORPHINE SULFATE 4 MG/ML INJ IV PUSH ×6 (01:29→23:50)
[2018-03-29] MEDS: SODIUM CHLORIDE 0.9% FLUSH 10 ML FLUSH IV FLUSH ×3 (01:30→19:40)
[2018-03-29] MEDS: OCTREOTIDE INJ 500 MCG in SODIUM CHLORID 0.9% 500 ML INJ 500 ML IV ×3 (01:30→18:57)
[2018-03-29] MEDS: CHLORHEXIDINE GLUCONATE 2 % 1 PACK (2 CLOTHS) TOP (04:00)
[2018-03-29 04:24] LABS: AUTOMATED NEUTROPHIL # 2.1 TH/MM3 (1.8-7.7); BASOPHIL % 0.5 % (0.0-2.0); EOSINOPHIL # 0.1 TH/MM3 (0-0.4); EOSINOPHIL % 2.5 % (0.0-4.0); HEMOGLOBIN 9.8 GM/DL (13.0-17.0); LYMPHOCYTE # 1.4 TH/MM3 (1.0-4.8); MEAN CELL VOLUME 96.8 FL (80.0-100.0); MEAN CORPUSCULAR HEMOGLOBIN 33.8 PG (27.0-34.0); MEAN CORPUSCULAR HGB CONC 34.9 % (32.0-36.0); MEAN PLATELET VOLUME 8.5 FL (7.0-11.0); MONOCYTE # 0.6 TH/MM3 (0-0.9); PLATELET COUNT 55 TH/MM3 (150-450); RED BLOOD COUNT 2.89 MIL/MM3 (4.50-5.90); RED CELL DISTRIBUTION WIDTH 14.7 % (11.6-17.2); WHITE BLOOD COUNT 4.3 TH/MM3 (4.0-11.0)
[2018-03-29 04:25] LABS: HEMOGLOBIN 9.8 GM/DL (13.0-17.0)
[2018-03-29 04:25] LABS: HEMATOCRIT 28.2 % (39.0-51.0)
[2018-03-29 04:33] LABS: APTT (PATIENT) 27.2 SEC (24.3-30.1); INTERNATIONAL NORMALIZED RATIO 1.4 RATIO; PROTHROMBIN TIME - PATIENT 13.8 SEC (9.8-11.6)
[2018-03-29 04:34] LABS: REVIEW FLAG FINAL
[2018-03-29 04:35] LABS: HEMO FLAGS AUTO DIFF
[2018-03-29 04:36] LABS: AMMONIA 91 MCMOL/L (11-32)
[2018-03-29 04:47] LABS: FIBRINOGEN 92 mg/dL (227-377)
[2018-03-29 04:55] LABS: ALKALINE PHOSPHATASE 138 U/L (45-117); ALT (GPT) 84 U/L (12-78); CREATINE KINASE 398 U/L (39-308); PHOSPHORUS 2.3 MG/DL (2.5-4.9); TOTAL BILIRUBIN ADULT 1.6 MG/DL (0.2-1.0); TOTAL PROTEIN 6.2 GM/DL (6.4-8.2); TROPONIN I LESS THAN 0.02 NG/ML (0.02-0.05)
[2018-03-29 05:07] LABS: CKMB 1.4 NG/ML (0.5-3.6); CKMB % 0.4 % (0.0-4.0)
[2018-03-29 05:08] LABS: ALBUMIN 2.5 GM/DL (3.4-5.0); ANION GAP 7 MEQ/L (5-15); AST (GOT) 150 U/L (15-37); BICARBONATE 29.5 MEQ/L (21.0-32.0); BLOOD UREA NITROGEN 15 MG/DL (7-18); CALCIUM 7.5 MG/DL (8.5-10.1); CHLORIDE 108 MEQ/L (98-107); CREATININE 1.02 MG/DL (0.60-1.30); GLOMERULAR FILTRATION RATE 76 ML/MIN (>89); GLUCOSE,RANDOM 119 MG/DL (74-106); MAGNESIUM 1.9 MG/DL (1.5-2.5); POTASSIUM 3.8 MEQ/L (3.5-5.1); SODIUM (NA) 144 MEQ/L (136-145)
[2018-03-29 07:05] LABS: PLATELET ESTIMATE SMEAR LOW (NORMAL); PLATELET MORPHOLOGY NORMAL (NORMAL); SCAN/DIFF AUTO DIFF CONFIRMED
[2018-03-29] MEDS: LACTULOSE SYRUP 20 GM/30 ML CUP PO (07:45)
[2018-03-29] MEDS: GABAPENTIN 400 MG CAP PO ×3 (07:45→18:14)
[2018-03-29 07:50] LABS: CRYO COMMENT 1 1
[2018-03-29] MEDS: PHYTONADIONE INJ 10 MG in DEXTROSE 5% IN WATER INJ 50 ML IV (09:32)
[2018-03-29] MEDS: LORazepam 2 MG/ML VIAL IV PUSH ×3 (09:32→23:50)
[2018-03-29] MEDS: SODIUM CHLOR 0.9% 250 ML INJ 250 ML IV (09:33)
[2018-03-29] MEDS: LACTATED RINGER'S 1000 ML INJ 1,000 ML IV (09:34)
[2018-03-29] MEDS: THIAMINE INJ 100 MG in SODIUM CHLORIDE 0.9% INJ 100 ML IV (10:55)
[2018-03-29 11:29] LABS: HEMOGLOBIN 9.3 GM/DL (13.0-17.0)
[2018-03-29 11:29] LABS: HEMATOCRIT 27.1 % (39.0-51.0)
[2018-03-29 11:31] LABS: REVIEW FLAG FINAL
[2018-03-29] MEDS ORDERED: DO NOT ADM ANY ANTICOAGULANT DRUGS (14:17)
[2018-03-29] MEDS: MULTIVITAMIN INJ 10 ML, FOLIC ACID INJ 1 MG in SODIUM CHLORID 0.9% 500 ML INJ 500 ML IV (15:17)
[2018-03-29 17:34] LABS: HEMOGLOBIN 10.2 GM/DL (13.0-17.0)
[2018-03-29 17:40] LABS: REVIEW FLAG FINAL
[2018-03-30] MEDS: LORazepam 2 MG/ML VIAL IV PUSH ×4 (02:05→21:10)
[2018-03-30] MEDS: MORPHINE SULFATE 4 MG/ML INJ IV PUSH ×3 (02:05→21:10)
[2018-03-30] MEDS: SODIUM PHOSPHATE INJ 30 MMOL in SODIUM CHLOR 0.9% 250 ML INJ 240 ML IV (03:49)
[2018-03-30] MEDS: CHLORHEXIDINE GLUCONATE 2 % 1 PACK (2 CLOTHS) TOP (04:00)
[2018-03-30] MEDS: cefTRIAXone INJ 1,000 MG in SODIUM CHLORIDE 0.9% INJ 100 ML IV (05:24)
[2018-03-30] MEDS: PANTOPRAZOLE INJ 80 MG in SODIUM CHLORIDE 0.9% INJ 100 ML IV ×2 (06:53→18:07)
[2018-03-30 07:16] LABS: AUTOMATED NEUTROPHIL # 1.4 TH/MM3 (1.8-7.7); BASOPHIL % 0.4 % (0.0-2.0); EOSINOPHIL # 0.1 TH/MM3 (0-0.4); EOSINOPHIL % 3.7 % (0.0-4.0); HEMATOCRIT 26.1 % (39.0-51.0); HEMOGLOBIN 9.2 GM/DL (13.0-17.0); LYMPH % 29.8 % (9.0-44.0); LYMPHOCYTE # 0.8 TH/MM3 (1.0-4.8); MEAN CELL VOLUME 96.4 FL (80.0-100.0); MEAN CORPUSCULAR HEMOGLOBIN 33.9 PG (27.0-34.0); MEAN CORPUSCULAR HGB CONC 35.2 % (32.0-36.0); MEAN PLATELET VOLUME 8.6 FL (7.0-11.0); MONO % 13.2 % (0.0-8.0); MONOCYTE # 0.4 TH/MM3 (0-0.9); NEUT % 52.9 % (16.0-70.0); PLATELET COUNT 36 TH/MM3 (150-450); RED BLOOD COUNT 2.71 MIL/MM3 (4.50-5.90); RED CELL DISTRIBUTION WIDTH 14.6 % (11.6-17.2); WHITE BLOOD COUNT 2.7 TH/MM3 (4.0-11.0)
[2018-03-30 07:24] LABS: FIBRINOGEN 124 mg/dL (227-377); INTERNATIONAL NORMALIZED RATIO 1.3 RATIO; PROTHROMBIN TIME - PATIENT 12.9 SEC (9.8-11.6)
[2018-03-30 07:25] LABS: AMMONIA 61 MCMOL/L (11-32)
[2018-03-30 07:35] LABS: HEMO FLAGS AUTO DIFF
[2018-03-30 07:48] LABS: ALBUMIN 2.6 GM/DL (3.4-5.0); ALKALINE PHOSPHATASE 131 U/L (45-117); ALT (GPT) 82 U/L (12-78); ANION GAP 6 MEQ/L (5-15); AST (GOT) 160 U/L (15-37); BICARBONATE 27.9 MEQ/L (21.0-32.0); BLOOD UREA NITROGEN 11 MG/DL (7-18); CALCIUM 7.3 MG/DL (8.5-10.1); CALCIUM-PROTEIN CORRECTED 7.7 MG/DL (8.5-10.1); CHLORIDE 107 MEQ/L (98-107); CREATININE 0.86 MG/DL (0.60-1.30); GLOMERULAR FILTRATION RATE 92 ML/MIN (>89); GLUCOSE,RANDOM 121 MG/DL (74-106); MAGNESIUM 1.8 MG/DL (1.5-2.5); PHOSPHORUS 3.9 MG/DL (2.5-4.9); POTASSIUM 3.6 MEQ/L (3.5-5.1); SODIUM (NA) 141 MEQ/L (136-145); TOTAL BILIRUBIN ADULT 1.5 MG/DL (0.2-1.0); TOTAL PROTEIN 6.3 GM/DL (6.4-8.2)
[2018-03-30 08:26] LABS: PLATELET ESTIMATE SMEAR LOW (NORMAL); PLATELET MORPHOLOGY NORMAL (NORMAL); SCAN/DIFF AUTO DIFF CONFIRMED
[2018-03-30] MEDS: OCTREOTIDE INJ 500 MCG in SODIUM CHLORID 0.9% 500 ML INJ 500 ML IV ×2 (08:51→18:07)
[2018-03-30] MEDS: LACTULOSE SYRUP 20 GM/30 ML CUP PO ×3 (08:51→21:09)
[2018-03-30] MEDS: LACTATED RINGER'S 1000 ML INJ 1,000 ML IV (08:51)
[2018-03-30] MEDS: GABAPENTIN 400 MG CAP PO ×3 (08:52→16:54)
[2018-03-30] MEDS: SODIUM CHLORIDE 0.9% FLUSH 10 ML FLUSH IV FLUSH ×2 (08:53→21:10)
[2018-03-30] MEDS ORDERED: DEXMEDETOMIDINE INJ 200 MCG in SODIUM CHLORIDE 0.9% INJ 50 ML IV (09:15)
[2018-03-30] MEDS: CALCIUM GLUCONATE INJ 1 GM in DEXTROSE 5% IN WATER 100ML INJ 100 ML IV (10:38)
[2018-03-30] MEDS: THIAMINE INJ 100 MG in SODIUM CHLORIDE 0.9% INJ 100 ML IV (12:44)
[2018-03-30] MEDS: MULTIVITAMIN INJ 10 ML, FOLIC ACID INJ 1 MG in SODIUM CHLORID 0.9% 500 ML INJ 500 ML IV (13:16)
[2018-03-30] MEDS: RIFAXIMIN 550 MG TAB PO (21:10)
[2018-03-31] MEDS: MORPHINE SULFATE 4 MG/ML INJ IV PUSH ×4 (00:33→10:47)
[2018-03-31] MEDS: LORazepam 2 MG/ML VIAL IV PUSH ×2 (00:34→05:05)
[2018-03-31] MEDS: CHLORHEXIDINE GLUCONATE 2 % 1 PACK (2 CLOTHS) TOP (04:00)
[2018-03-31 04:37] LABS: AMMONIA 29 MCMOL/L (11-32)
[2018-03-31 04:38] LABS: AUTOMATED NEUTROPHIL # 2.3 TH/MM3 (1.8-7.7); BASOPHIL % 0.4 % (0.0-2.0); EOSINOPHIL # 0.1 TH/MM3 (0-0.4); EOSINOPHIL % 2.9 % (0.0-4.0); HEMATOCRIT 28.6 % (39.0-51.0); HEMO FLAGS AUTO DIFF; LYMPHOCYTE # 0.7 TH/MM3 (1.0-4.8); MEAN CELL VOLUME 96.6 FL (80.0-100.0); MEAN CORPUSCULAR HEMOGLOBIN 33.9 PG (27.0-34.0); MEAN CORPUSCULAR HGB CONC 35.1 % (32.0-36.0); MEAN PLATELET VOLUME 8.7 FL (7.0-11.0); MONO % 10.3 % (0.0-8.0); MONOCYTE # 0.4 TH/MM3 (0-0.9); NEUT % 65.4 % (16.0-70.0); PLATELET COUNT 46 TH/MM3 (150-450); RED BLOOD COUNT 2.96 MIL/MM3 (4.50-5.90); RED CELL DISTRIBUTION WIDTH 14.7 % (11.6-17.2); WHITE BLOOD COUNT 3.5 TH/MM3 (4.0-11.0)
[2018-03-31 04:47] LABS: INTERNATIONAL NORMALIZED RATIO 1.3 RATIO; PROTHROMBIN TIME - PATIENT 12.9 SEC (9.8-11.6)
[2018-03-31 04:50] LABS: ALBUMIN 2.8 GM/DL (3.4-5.0); ANION GAP 6 MEQ/L (5-15); AST (GOT) 151 U/L (15-37); BICARBONATE 28.9 MEQ/L (21.0-32.0); BLOOD UREA NITROGEN 8 MG/DL (7-18); CALCIUM 7.7 MG/DL (8.5-10.1); CHLORIDE 106 MEQ/L (98-107); CREATININE 0.87 MG/DL (0.60-1.30); GLOMERULAR FILTRATION RATE 91 ML/MIN (>89); GLUCOSE,RANDOM 114 MG/DL (74-106); MAGNESIUM 1.9 MG/DL (1.5-2.5); POTASSIUM 3.7 MEQ/L (3.5-5.1); SODIUM (NA) 141 MEQ/L (136-145)
[2018-03-31 04:51] LABS: ALT (GPT) 86 U/L (12-78); PHOSPHORUS 3.7 MG/DL (2.5-4.9)
[2018-03-31 04:53] LABS: ALKALINE PHOSPHATASE 152 U/L (45-117); TOTAL BILIRUBIN ADULT 1.6 MG/DL (0.2-1.0); TOTAL PROTEIN 6.8 GM/DL (6.4-8.2)
[2018-03-31] MEDS: OCTREOTIDE INJ 500 MCG in SODIUM CHLORID 0.9% 500 ML INJ 500 ML IV (05:06)
[2018-03-31] MEDS: PANTOPRAZOLE INJ 80 MG in SODIUM CHLORIDE 0.9% INJ 100 ML IV (05:06)
[2018-03-31] MEDS: cefTRIAXone INJ 1,000 MG in SODIUM CHLORIDE 0.9% INJ 100 ML IV (05:07)
[2018-03-31] MEDS: LACTULOSE SYRUP 20 GM/30 ML CUP PO ×3 (05:07→20:08)
[2018-03-31 05:16] LABS: PLATELET ESTIMATE SMEAR LOW (NORMAL); PLATELET MORPHOLOGY NORMAL (NORMAL); SCAN/DIFF AUTO DIFF CONFIRMED
[2018-03-31] MEDS: SODIUM CHLORIDE 0.9% FLUSH 10 ML FLUSH IV FLUSH ×2 (08:21→20:08)
[2018-03-31] MEDS: PANTOPRAZOLE SODIUM 40 MG VIAL IV PUSH ×2 (08:22→20:07)
[2018-03-31] MEDS: RIFAXIMIN 550 MG TAB PO ×2 (08:23→20:08)
[2018-03-31] MEDS: GABAPENTIN 400 MG CAP PO ×3 (08:23→17:01)
[2018-03-31] MEDS: LORazepam 1 MG TAB PO (09:17)
[2018-03-31] MEDS: MULTIVITAMIN INJ 10 ML, FOLIC ACID INJ 1 MG in SODIUM CHLORID 0.9% 500 ML INJ 500 ML IV (11:45)
[2018-03-31] MEDS ORDERED: GLUCAGON 1 MG/ML VIAL OTHER (13:45)
[2018-03-31] MEDS ORDERED: DEXTROSE 50% IN WATER 50 ML VIAL(D50) IV PUSH (13:45)
[2018-03-31 16:21] LABS: HEMOGLOBIN A1C 4.5 % (4.3-6.0); HEMOGLOBIN A1a 0.7 %; HEMOGLOBIN A1b 0.6 %; HEMOGLOBIN Ao 88.3 %; HEMOGLOBIN F 0.7 %; HEMOGLOBIN LA1C 1.8 %
[2018-03-31] MEDS: INSULIN ASPART SUPPLEMENTAL SCALE SQ ×2 (17:00→20:15)
[2018-03-31] MEDS: KETOROLAC TROMETHAMINE 30 MG/ML (IVP) VIAL IV PUSH (17:25)
[2018-04-01] MEDS: KETOROLAC TROMETHAMINE 30 MG/ML (IVP) VIAL IV PUSH ×2 (01:10→14:12)
[2018-04-01] MEDS: CHLORHEXIDINE GLUCONATE 2 % 1 PACK (2 CLOTHS) TOP (04:00)
[2018-04-01] MEDS: LACTULOSE SYRUP 20 GM/30 ML CUP PO ×4 (05:20→21:10)
[2018-04-01] MEDS: cefTRIAXone INJ 1,000 MG in SODIUM CHLORIDE 0.9% INJ 100 ML IV (05:20)
[2018-04-01 06:23] LABS: AUTOMATED NEUTROPHIL # 2.6 TH/MM3 (1.8-7.7); BASOPHIL % 0.3 % (0.0-2.0); EOSINOPHIL # 0.1 TH/MM3 (0-0.4); EOSINOPHIL % 2.9 % (0.0-4.0); HEMATOCRIT 26.7 % (39.0-51.0); HEMOGLOBIN 9.4 GM/DL (13.0-17.0); LYMPH % 17.1 % (9.0-44.0); LYMPHOCYTE # 0.6 TH/MM3 (1.0-4.8); MEAN CELL VOLUME 96.6 FL (80.0-100.0); MEAN CORPUSCULAR HEMOGLOBIN 33.9 PG (27.0-34.0); MEAN CORPUSCULAR HGB CONC 35.1 % (32.0-36.0); MEAN PLATELET VOLUME 8.4 FL (7.0-11.0); MONO % 9.3 % (0.0-8.0); MONOCYTE # 0.3 TH/MM3 (0-0.9); NEUT % 70.4 % (16.0-70.0); PLATELET COUNT 43 TH/MM3 (150-450); RED BLOOD COUNT 2.77 MIL/MM3 (4.50-5.90); RED CELL DISTRIBUTION WIDTH 14.5 % (11.6-17.2); WHITE BLOOD COUNT 3.7 TH/MM3 (4.0-11.0)
[2018-04-01 06:34] LABS: AMMONIA 48 MCMOL/L (11-32)
[2018-04-01 06:38] LABS: HEMO FLAGS AUTO DIFF
[2018-04-01 06:48] LABS: INTERNATIONAL NORMALIZED RATIO 1.3 RATIO; PROTHROMBIN TIME - PATIENT 13.6 SEC (9.8-11.6)
[2018-04-01 06:56] LABS: ALBUMIN 2.4 GM/DL (3.4-5.0); ALKALINE PHOSPHATASE 163 U/L (45-117); ALT (GPT) 81 U/L (12-78); ANION GAP 7 MEQ/L (5-15); AST (GOT) 140 U/L (15-37); BICARBONATE 27.4 MEQ/L (21.0-32.0); BLOOD UREA NITROGEN 9 MG/DL (7-18); CALCIUM 7.4 MG/DL (8.5-10.1); CALCIUM-PROTEIN CORRECTED 7.8 MG/DL (8.5-10.1); CHLORIDE 108 MEQ/L (98-107); CREATININE 0.92 MG/DL (0.60-1.30); GLOMERULAR FILTRATION RATE 85 ML/MIN (>89); GLUCOSE,RANDOM 112 MG/DL (74-106); MAGNESIUM 1.9 MG/DL (1.5-2.5); PHOSPHORUS 3.6 MG/DL (2.5-4.9); POTASSIUM 3.8 MEQ/L (3.5-5.1); SODIUM (NA) 142 MEQ/L (136-145); TOTAL BILIRUBIN ADULT 1.1 MG/DL (0.2-1.0); TOTAL PROTEIN 6.3 GM/DL (6.4-8.2)
[2018-04-01] MEDS: INSULIN ASPART SUPPLEMENTAL SCALE SQ ×4 (08:00→21:00)
[2018-04-01 08:15] LABS: PLATELET ESTIMATE SMEAR LOW (NORMAL); PLATELET MORPHOLOGY NORMAL (NORMAL); SCAN/DIFF AUTO DIFF CONFIRMED
[2018-04-01] MEDS: SODIUM CHLORIDE 0.9% FLUSH 10 ML FLUSH IV FLUSH ×2 (10:49→21:11)
[2018-04-01] MEDS: RIFAXIMIN 550 MG TAB PO ×2 (10:49→21:11)
[2018-04-01] MEDS: PANTOPRAZOLE SODIUM 40 MG VIAL IV PUSH ×2 (10:49→21:11)
[2018-04-01] MEDS: GABAPENTIN 400 MG CAP PO ×3 (10:49→17:15)
[2018-04-01] MEDS: ONDANSETRON HCL 4 MG/2 ML VIAL IV PUSH (11:00)
[2018-04-01] MEDS: MULTIVITAMIN INJ 10 ML, FOLIC ACID INJ 1 MG in SODIUM CHLORID 0.9% 500 ML INJ 500 ML IV (14:20)
[2018-04-01] MEDS ORDERED: oxyCODONE/ACETAMINOPHEN 5 MG/325 MG TAB PO (16:00)
[2018-04-01] MEDS ORDERED: CALCIUM CHLORIDE INJ 2 GM in SODIUM CHLORIDE 0.9% INJ 100 ML IV (16:30)
[2018-04-01] MEDS: oxyCODONE/ACETAMINOPHEN 5 MG/325 MG TAB PO ×2 (17:16→21:13)
[2018-04-01] MEDS: CALCIUM CHLORIDE INJ 2 GM in SODIUM CHLORIDE 0.9% INJ 100 ML IV (18:53)
[2018-04-02] MEDS: oxyCODONE/ACETAMINOPHEN 5 MG/325 MG TAB PO ×5 (02:00→21:42)
[2018-04-02] MEDS: CHLORHEXIDINE GLUCONATE 2 % 1 PACK (2 CLOTHS) TOP (03:38)
[2018-04-02] MEDS: cefTRIAXone INJ 1,000 MG in SODIUM CHLORIDE 0.9% INJ 100 ML IV (05:44)
[2018-04-02 06:03] LABS: BASOPHIL % 0.5 % (0.0-2.0); EOSINOPHIL # 0.1 TH/MM3 (0-0.4); EOSINOPHIL % 2.3 % (0.0-4.0); HEMATOCRIT 27.8 % (39.0-51.0); HEMOGLOBIN 9.7 GM/DL (13.0-17.0); LYMPH % 15.4 % (9.0-44.0); LYMPHOCYTE # 0.7 TH/MM3 (1.0-4.8); MEAN CELL VOLUME 97.8 FL (80.0-100.0); MEAN CORPUSCULAR HGB CONC 34.8 % (32.0-36.0); MEAN PLATELET VOLUME 8.5 FL (7.0-11.0); MONOCYTE # 0.6 TH/MM3 (0-0.9); NEUT % 68.8 % (16.0-70.0); PLATELET COUNT 43 TH/MM3 (150-450); RED BLOOD COUNT 2.85 MIL/MM3 (4.50-5.90); RED CELL DISTRIBUTION WIDTH 15.1 % (11.6-17.2); WHITE BLOOD COUNT 4.4 TH/MM3 (4.0-11.0)
[2018-04-02 06:06] LABS: HEMO FLAGS AUTO DIFF
[2018-04-02 06:14] LABS: INTERNATIONAL NORMALIZED RATIO 1.3 RATIO; PROTHROMBIN TIME - PATIENT 13.6 SEC (9.8-11.6)
[2018-04-02 06:28] LABS: ALBUMIN 2.6 GM/DL (3.4-5.0); ANION GAP 6 MEQ/L (5-15); AST (GOT) 133 U/L (15-37); BICARBONATE 27.6 MEQ/L (21.0-32.0); BLOOD UREA NITROGEN 9 MG/DL (7-18); CALCIUM 8.2 MG/DL (8.5-10.1); CHLORIDE 108 MEQ/L (98-107); CREATININE 1.18 MG/DL (0.60-1.30); GLOMERULAR FILTRATION RATE 64 ML/MIN (>89); GLUCOSE,RANDOM 108 MG/DL (74-106); MAGNESIUM 1.8 MG/DL (1.5-2.5); POTASSIUM 3.7 MEQ/L (3.5-5.1); SODIUM (NA) 142 MEQ/L (136-145)
[2018-04-02 06:29] LABS: ALT (GPT) 86 U/L (12-78); PHOSPHORUS 4.1 MG/DL (2.5-4.9)
[2018-04-02 06:29] LABS: AMMONIA 32 MCMOL/L (11-32)
[2018-04-02 06:31] LABS: ALKALINE PHOSPHATASE 176 U/L (45-117); TOTAL BILIRUBIN ADULT 1.3 MG/DL (0.2-1.0); TOTAL PROTEIN 6.5 GM/DL (6.4-8.2)
[2018-04-02] MEDS: INSULIN ASPART SUPPLEMENTAL SCALE SQ ×4 (08:00→21:43)
[2018-04-02 08:01] LABS: PLATELET ESTIMATE SMEAR LOW (NORMAL); PLATELET MORPHOLOGY NORMAL (NORMAL); SCAN/DIFF AUTO DIFF CONFIRMED
[2018-04-02] MEDS: LACTULOSE SYRUP 20 GM/30 ML CUP PO ×4 (09:00→21:00)
[2018-04-02] MEDS: RIFAXIMIN 550 MG TAB PO ×2 (09:35→21:42)
[2018-04-02] MEDS: GABAPENTIN 400 MG CAP PO ×3 (09:35→17:53)
[2018-04-02] MEDS: SODIUM CHLORIDE 0.9% FLUSH 10 ML FLUSH IV FLUSH ×2 (09:39→21:42)
[2018-04-02] MEDS: PANTOPRAZOLE SODIUM 40 MG VIAL IV PUSH ×2 (09:39→21:42)
[2018-04-03] MEDS: oxyCODONE/ACETAMINOPHEN 5 MG/325 MG TAB PO ×3 (02:19→13:54)
[2018-04-03] MEDS: CHLORHEXIDINE GLUCONATE 2 % 1 PACK (2 CLOTHS) TOP (04:00)
[2018-04-03] MEDS: cefTRIAXone INJ 1,000 MG in SODIUM CHLORIDE 0.9% INJ 100 ML IV (06:22)
[2018-04-03 06:31] LABS: ANION GAP 7 MEQ/L (5-15); BICARBONATE 25.8 MEQ/L (21.0-32.0); BLOOD UREA NITROGEN 7 MG/DL (7-18); CALCIUM 7.3 MG/DL (8.5-10.1); CHLORIDE 108 MEQ/L (98-107); CREATININE 0.99 MG/DL (0.60-1.30); GLOMERULAR FILTRATION RATE 78 ML/MIN (>89); GLUCOSE,RANDOM 131 MG/DL (74-106); POTASSIUM 3.1 MEQ/L (3.5-5.1); SODIUM (NA) 141 MEQ/L (136-145)
[2018-04-03 06:49] LABS: CALCIUM-PROTEIN CORRECTED 7.9 MG/DL (8.5-10.1); TOTAL PROTEIN 5.9 GM/DL (6.4-8.2)
[2018-04-03] MEDS: INSULIN ASPART SUPPLEMENTAL SCALE SQ ×2 (08:22→12:00)
[2018-04-03] MEDS: LACTULOSE SYRUP 20 GM/30 ML CUP PO ×2 (09:00→13:00)
[2018-04-03] MEDS ORDERED: MORPHINE SULFATE 4 MG/ML INJ IV (10:30)
[2018-04-03] MEDS: CALCIUM CHLORIDE INJ 2 GM in SODIUM CHLORIDE 0.9% INJ 100 ML IV (10:30)
[2018-04-03] MEDS: RIFAXIMIN 550 MG TAB PO (11:10)
[2018-04-03] MEDS: GABAPENTIN 400 MG CAP PO ×2 (11:10→13:54)
[2018-04-03] MEDS: POTASSIUM CHLORIDE 10 MEQ CONTROLLED RELEASE TAB PO (11:10)
[2018-04-03] MEDS: PANTOPRAZOLE SODIUM 40 MG VIAL IV PUSH (11:11)
[2018-04-03] MEDS: SODIUM CHLORIDE 0.9% FLUSH 10 ML FLUSH IV FLUSH (11:12)
== END 2018-04-03 16:04 | disposition home health service (06) | DRG 432 ==
LOC: N06B 04-01 17:10 → NEPE 02:33 → NEDA 05:34 → HIMW 07:35
PROC: 30233M1 Transfusion of Nonautologous Plasma Cryoprecipitate into Peripheral Vein, Percutaneous Approach (ICD-10-PCS; principal; 2018-03-29 13:37)
PROC: 30233R1 Transfusion of Nonautologous Platelets into Peripheral Vein, Percutaneous Approach (ICD-10-PCS; 2018-03-29 13:37)
PROC: 0DJD8ZZ Inspection of Lower Intestinal Tract, Via Natural or Artificial Opening Endoscopic (ICD-10-PCS; 2018-03-29 13:37)
PROC: 0DJ08ZZ Inspection of Upper Intestinal Tract, Via Natural or Artificial Opening Endoscopic (ICD-10-PCS; 2018-03-29 13:37)
DX: K70.31 Alcoholic cirrhosis of liver with ascites (principal); I85.11 Secondary esophageal varices with bleeding; K76.6 Portal hypertension; D68.9 Coagulation defect, unspecified; E46 Unspecified protein-calorie malnutrition; D69.59 Other secondary thrombocytopenia; D62 Acute posthemorrhagic anemia; F10.239 Alcohol dependence with withdrawal, unspecified; E83.51 Hypocalcemia; G62.9 Polyneuropathy, unspecified; R16.1 Splenomegaly, not elsewhere classified; I10 Essential (primary) hypertension; F17.210 Nicotine dependence, cigarettes, uncomplicated; K21.9 Gastro-esophageal reflux disease without esophagitis; M19.90 Unspecified osteoarthritis, unspecified site; B18.2 Chronic viral hepatitis C; K59.00 Constipation, unspecified; M51.26 Other intervertebral disc displacement, lumbar region; K44.9 Diaphragmatic hernia without obstruction or gangrene; K29.50 Unspecified chronic gastritis without bleeding; I86.8 Varicose veins of other specified sites; K64.8 Other hemorrhoids; K64.4 Residual hemorrhoidal skin tags; K31.89 Other diseases of stomach and duodenum; R73.9 Hyperglycemia, unspecified; Z68.22 Body mass index [BMI] 22.0-22.9, adult
CPT/HCPCS: 36430; 74177; 80048; 80053; 82140; 82550; 82552; 82948; 83036; 83690; 83735; 84100; 84155; 84443; 84484; 85014; 85018; 85025; 85384; 85610; 85730; 86850; 86900; 86901; 86965; 87040; 87641; 93005; 94150; 96365; 96366; 96372; 96375; 97110-GO; 97163-GP; 97167-GO; 97530-GP; 97535-GO; 99285-25

== ENCOUNTER 2018-04-18 12:15 | Emergency (ER) | payer OTHER ==
[~2018-04-18] VITALS: Ht 180.3 cm; Wt 75.0 kg
[~2018-04-18 12:15] MED LIST changes: -CYCL10TA PO; +FURO20TA PO; -IBUP-232 PO; +Lactulose Liq PO; +PERC5TAB12 PO; +PROT40TA PO; +XIFA550T4 PO
[2018-04-18 12:23] VITALS: BP 106/57; PULSE 95; RESP 16; TEMP 98.8; O2SAT 100
[2018-04-18] MEDS ORDERED: CEPHALEXIN MONOHYDRATE 500 MG CAP PO ONE (13:00)
[2018-04-18] MEDS ORDERED: SULFAMETHOXAZOLE-TRIMETHOPRIM DS 800-160 MG TAB PO ONE (13:00)
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
[2018-04-18] MEDS ORDERED: CEPH-460 PO (13:33)
[2018-04-18] MEDS ORDERED: BACT800T5 PO (13:33)
[2018-04-18] MEDS ORDERED: ONDANSETRON ODT 4 MG TAB PO ONE (14:00)
== END 2018-04-18 15:21 | disposition home or self-care (01) ==
LOC: NEPD 12:15
DX: L02.413 Cutaneous abscess of right upper limb (principal); I10 Essential (primary) hypertension; K21.9 Gastro-esophageal reflux disease without esophagitis; B19.20 Unspecified viral hepatitis C without hepatic coma; F17.200 Nicotine dependence, unspecified, uncomplicated
CPT/HCPCS: 99283

== ENCOUNTER 2018-05-10 10:15 | Emergency (ER) | payer OTHER ==
[~2018-05-10] VITALS: Ht 180.3 cm; Wt 80.0 kg
[~2018-05-10 10:15] MED LIST changes: +BACT800T5 PO; +CEPH-460 PO
[2018-05-10 10:18] VITALS: BP 131/86; PULSE 102; RESP 16; TEMP 98.6; O2SAT 100
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
[2018-05-10] MEDS ORDERED: CLINDAMYCIN 600 MG/NS PREMIX 50 ML IV ONE (11:00)
[2018-05-10] MEDS ORDERED: KETOROLAC TROMETHAMINE 30 MG/ML (IVP) VIAL IV PUSH ONE (11:00)
--- NOTE | 2018-05-10 11:00 | PD ---
Physical Exam Date Seen by Provider: May 10, 2018 Time Seen by Provider: 10:58 Narrative The patient is a 57-year-old male who was initially evaluated by the mid-level provider. Please refer to the original history, physical, diagnostic evaluation, and treatment modality plan. Data Data Last Documented VS Vital Signs Date Time Temp Pulse Resp B/P (MAP) Pulse Ox O2 Delivery O2 Flow Rate FiO2 05/10/18 10:18 98.6 102 16 131/86 (101) 100 MDM Medical Record Reviewed: Yes Supervised Visit with MOISES: Yes Differential Diagnosis Differential diagnosis includes cellulitis, abscess, osteomyelitis, thrombophlebitis, DVT, infected wound, IVDA. Narrative Course Patient was initially evaluated by the mid-level provider. Please refer to the initial history, physical, diagnostic evaluation, and treatment modality plan. I evaluated the patient at bedside, he does have mild swelling of the distal right forearm with tenderness, minimal overlying erythema and induration but no palpable abscess. There is no epitrochlear or right axillary lymphadenopathy noted. No signs of thrombophlebitis. Bedside ultrasound was performed which does reveal cellulitic changes of the forearm but no visible abscess. IV was established, labs are drawn and sent, the patient was placed on cardiac telemetry monitoring and continuous pulse oximetry monitoring. The patient was administered clindamycin 600 mg intravenously after blood cultures were obtained. White count and lactic acid were sent to lab. Procedures Procedure Narrative A bedside ultrasound was performed with a linear probe which reveals cellulitic changes in the right forearm but no visible abscess. The patient tolerated the procedure without difficulty. There was no obvious complications. Condition: Stable Grady Scott MD May 10, 2018 11:00
[2018-05-10] MEDS ORDERED: IBUP1TAB7 PO (11:52)
[2018-05-10] MEDS ORDERED: CLIN150C14 PO (11:52)
[2018-05-10 12:04] LABS: AUTOMATED NEUTROPHIL # 2.4 TH/MM3 (1.8-7.7); BASOPHIL % 0.4 % (0.0-2.0); EOSINOPHIL % 1.1 % (0.0-4.0); HEMATOCRIT 35.6 % (39.0-51.0); HEMOGLOBIN 11.5 GM/DL (13.0-17.0); LYMPH % 26.9 % (9.0-44.0); LYMPHOCYTE # 1.1 TH/MM3 (1.0-4.8); MEAN CELL VOLUME 86.7 FL (80.0-100.0); MEAN CORPUSCULAR HEMOGLOBIN 28.1 PG (27.0-34.0); MEAN CORPUSCULAR HGB CONC 32.4 % (32.0-36.0); MEAN PLATELET VOLUME 8.3 FL (7.0-11.0); MONO % 13.3 % (0.0-8.0); MONOCYTE # 0.6 TH/MM3 (0-0.9); NEUT % 58.3 % (16.0-70.0); PLATELET COUNT 66 TH/MM3 (150-450); RED BLOOD COUNT 4.11 MIL/MM3 (4.50-5.90); RED CELL DISTRIBUTION WIDTH 16.9 % (11.6-17.2); WHITE BLOOD COUNT 4.2 TH/MM3 (4.0-11.0)
[2018-05-10 12:24] LABS: BICARBONATE 25.4 MEQ/L (21.0-32.0); CALCIUM 8.2 MG/DL (8.5-10.1); CREATININE 0.95 MG/DL (0.60-1.30)
[2018-05-10 12:49] LABS: OVALOCYTES 1+ (NORMAL)
[2018-05-10 13:19] VITALS: BP 130/82
== END 2018-05-10 13:25 | disposition home or self-care (01) ==
LOC: NEPD 10:15
DX: L03.113 Cellulitis of right upper limb (principal); I10 Essential (primary) hypertension; M19.90 Unspecified osteoarthritis, unspecified site; I48.92 Unspecified atrial flutter; K21.9 Gastro-esophageal reflux disease without esophagitis; F17.200 Nicotine dependence, unspecified, uncomplicated; Z86.19 Personal history of other infectious and parasitic diseases; Z79.899 Other long term (current) drug therapy
CPT/HCPCS: 80048; 85025; 87040; 96365; 96375; 99284; J1885